=== PATIENT | male | born 1955 | race Caucasian/White ===

== ENCOUNTER → 2016-08-19 | Outpatient (CLI) | payer OTHER ==
[~2016-08-19] MED LIST: EFFSR75 PO; LEVO-18 PO; LVNIS150 SC; MOME200A INH; MULT-506 PO; ONDA8TAB6 PO; OXYC-106 PO; OXYC1TAB3 PO; WARF-237 PO; WARF2TAB PO; WARF5TAB90 PO; lovenox SC
--- NOTE | 2016-08-19 14:59 | DIAGNOSTIC IMAGING REPORT ---
ABDOMEN CT WITH IV AND ORAL CONTRAST CT DOSE: 585.26 mGy.cm HISTORY: Colon carcinoma 08/12/16 1049 CREAK 0.86 TECHNIQUE: Multiaxial CT images of the abdomen was performed following the use of intravenous and oral contrast. COMPARISON STUDY: 03/07/2016 FINDINGS: Lung bases remain generally clear. There is a 4 mm nodular density peripheral aspect right lung base slightly increased in prominence from the prior study. There are no new or interval nodular changes of the lung bases compared to the prior exam. The hepatic metastatic deposits are in general stable. There are no new interval or progressive lesions. There are findings of slight degree of proximal small bowel distention most likely secondary to a stable ventral hernia. No evidence for true incarceration is identified. There are several small retroperitoneal nodes unchanged in the prior exam. There does not appear to be evidence for new interval or progressive poli process. Spleen remains mildly prominent overall size. There is a small fixed hiatal hernia. IMPRESSION: 1. Slight increase in size of a nodular density right base laterally measuring 4 mm. 2. This study of the abdomen is otherwise unchanged from the prior study. 3. Ventral hernia, previously described, with this perhaps slightly larger as compared to the prior study with evidence for a mild degree of proximal small bowel distention. 4. Stable hepatic metastatic disease. 5. No evidence for progressive neoplastic change involving the abdomen Electronically signed by: Justus John M.D. 08/19/2016 2:58 PM Dictated Date/Time: 08/19/2016 2:46 PM
== END | disposition home or self-care (01) ==
LOC: C.CTS 13:35
PROVIDERS: ATTEND Internal Medicine Hematology & Oncology
DX: C18.2 Malignant neoplasm of ascending colon (principal); K43.9 Ventral hernia without obstruction or gangrene

== ENCOUNTER → 2016-09-24 | Outpatient (CLI) | payer OTHER ==
--- NOTE | 2016-09-24 11:47 | DIAGNOSTIC IMAGING REPORT ---
CHEST 2 VIEWS ROUTINE HISTORY: Cough. COMPARISON: Chest 03/28/2016. FINDINGS: The heart is normal size. Left subclavian Port-A-Cath terminates at the distal left brachiocephalic vein near the SVC junction. No focal lung consolidations to suggest pneumonia. No evidence for pulmonary edema. No pleural effusions. No pneumothorax. IMPRESSION: No acute process. Electronically signed by: Amado Garces M.D. 09/24/2016 11:46 AM Dictated Date/Time: 09/24/2016 11:44 AM
== END | disposition home or self-care (01) ==
LOC: C.RAD 11:26
PROVIDERS: ATTEND Internal Medicine Hematology & Oncology
DX: C18.2 Malignant neoplasm of ascending colon (principal); R05 Cough

== ENCOUNTER 2016-12-31 08:30 | Emergency (ER) | payer OTHER ==
[~2016-12-31] VITALS: Ht 180.3 cm; Wt 95.0 kg
[~2016-12-31 08:30] MED LIST changes: -EFFSR75 PO; -LEVO-18 PO; -LVNIS150 SC; -OXYC-106 PO; -WARF-237 PO; -WARF2TAB PO; -WARF5TAB90 PO; -lovenox SC
[2016-12-31 08:37] VITALS: TEMP 36.4; Ht 180.3 cm; Wt 95.0 kg
[2016-12-31] MEDS ORDERED: SODIUM CHLORIDE 0.9% 1000ML 1,000 ML IV STA ×2 (08:44→10:18)
[2016-12-31 08:45] VITALS: O2SAT 100
--- NOTE | 2016-12-31 09:03 | EMERGENCY ROOM VISIT NOTE ---
History Report prepared by Maulik: Lenard Garcia Under the Supervision of: Dr. Anton Carmichael D.O. First contact with patient: 08:43 Chief Complaint: SYNCOPE (NEAR SYNCOPE) Stated Complaint: BLACKED OUT History of Present Illness The patient is a 61 year old male who presents to the Emergency Room following a syncopal episode that occurred just prior to arrival. The patient states he first began to feel dizzy after he stood up and began to walk to the kitchen. He notes experiencing some vision irregularities before completely "blacking out." The patient describes that he fell straight forward, directly onto a hardwood floor. He is now complaining of pain in his jaw and bilateral chest. He also notes that he chipped multiple teeth. He is currently receiving chemotherapy treatments for colon cancer with metastasis to the liver and lung. He was first diagnosed with colon cancer on the 03 of October and had an emergency colon resection on the . Source of History: patient Onset: Just prior to arrival Position: other (Global) Quality: other (Syncopal episode) Associated Symptoms: + chest pain (From fall ) Note: Jaw/teeth pain. Review of Systems See HPI for pertinent positives & negatives. A total of 10 systems reviewed and were otherwise negative. Past Medical & Surgical Medical Problems: (1) Asthma (2) Diverticulitis (3) Metastatic adenocarcinoma Surgical Problems: (1) H/O knee surgery (2) History of tonsillectomy Family History Patient reports no known family medical history. Social History Smoking Status: Never Smoker Drug Use: none Marital Status: Occupation Status: employed Current/Historical Medications Scheduled Multivitamin (Multivitamin), 1 TAB PO QAM Venlafaxine Hcl (Effexor Extended Rel), 75 MG PO DAILY Scheduled PRN Mometasone Furoate-Formoterol (Dulera 200/5 Mcg), 1 AER INH for PRN Ondansetron Hcl (Zofran), 8 MG PO Q8 PRN for Nausea Oxycodone/Acetaminophen 10MG/325MG (Percocet 10MG/325MG), 1 TAB PO Q4H PRN for Pain Allergies Coded Allergies: Poison Marlene Extract/Poison Cavour Extra (Verified Allergy, Intermediate, Rash - poison marlene, 12/31/16) Physical Exam Vital Signs Date Time Temp Pulse Resp B/P (MAP) Pulse Ox O2 Delivery O2 Flow Rate FiO2 12/31/16 12:39 61 12/31/16 11:39 59 20 139/91 100 Room Air 12/31/16 10:30 63 18 125/83 100 Room Air 12/31/16 09:50 59 18 137/83 100 Room Air 12/31/16 08:49 76 12/31/16 08:45 69 18 123/87 100 Room Air 70 116/80 80 100/54 12/31/16 08:45 100 Room Air 12/31/16 08:37 36.4 76 20 112/75 100 Room Air Physical Exam CONSTITUTIONAL/VITAL SIGNS: Reviewed / noted above. GENERAL: Non-toxic in appearance. INTEGUMENTARY: Warm, dry, and [place]. HEAD: There is a small skin avulsion to the lower lip as well as a 2 cm chin laceration. There is bilateral jaw pain with ROM. There is dental pain present , no obvious dental avulsion or fracture. EYES: without scleral icterus or trauma. ENT/OROPHARYNX: clear and moist. LYMPHADENOPATHY/NECK: Is supple without lymphadenopathy or meningismus. RESPIRATORY: Lungs clear and equal. CARDIOVASCULAR: Regular rate and rhythm. GI/ABDOMEN: Soft and nontender. No organomegaly or pulsatile mass. No rebound or guarding. Normal bowel sounds. EXTREMITIES: Warm and well perfused. BACK: No CVA tenderness. NEUROLOGICAL: Intact without focal deficits. PSYCHIATRIC: normal affect. MUSCULOSKELETAL: Normally developed with good muscle tone. Medical Decision & Procedures ER Provider Diagnostic Interpretation: Radiology results as stated below per my review and radiologist interpretation: CHEST ONE VIEW PORTABLE CLINICAL HISTORY: EVALUATE ALTERED MENTAL STATUS/WEAKNESS COMPARISON STUDY: 09/24/2016 FINDINGS: The bones soft tissues and hemidiaphragms are normal. The cardiomediastinal silhouette is normal. The lungs are clear. The pulmonary vasculature is normal. IMPRESSION: Negative chest. Electronically signed by: Justus John M.D. 12/31/2016 9:13 AM Dictated Date/Time: 12/31/2016 9:[address] CT DOSE: 872.02 mGy.cm HISTORY: EVALUATE ALTERED MENTAL STATUS/WEAKNESS TECHNIQUE: Multiaxial CT images of the head were performed without the use of intravenous contrast. Comparison: None. Findings: The paranasal sinuses and mastoid air cells are clear. The calvarium and skull base are intact. The ventricles and sulci are within normal limits. There is no mass, hematoma, midline shift, or acute infarct. Impression: No acute intracranial abnormality. Electronically signed by: Justus John M.D. 12/31/2016 9:39 AM Dictated Date/Time: 12/31/2016 9:[address] DOSE: HISTORY: Facial injury. fall TECHNIQUE: Multiaxial CT images of the maxillofacial region were performed and reformatted in the coronal plane without the use of contrast. COMPARISON: None. FINDINGS: Evaluation the limited due to the metallic artifact from the dental hardware. The nasal bones, visualized cervical spine, skull base, pterygoid plates, zygomatic arches, and orbital floors are intact. Slightly angulated and comminuted fracture within the left mandibular condyle. There is also a comminuted and impacted fracture within the right mandibular condyle. This demonstrates anterior subluxation from the mandibular fossa. Postoperative changes within the left globe. IMPRESSION: Bilateral mandibular condyle fractures as described above Electronically signed by: Amado Garces M.D. 12/31/2016 9:47 AM Dictated Date/Time: 12/31/2016 9:41 AM. CHEST CTA for PULMONARY ARTERIES CT DOSE: 544.09 mGycm HISTORY: Chest pain dyspnea TECHNIQUE: Multiaxial CT images of the chest were performed following the intravenous administration of contrast to evaluate the pulmonary arteries. Maximal intensity projection images were also obtained. COMPARISON STUDY: None. FINDINGS: There is a normal caliber thoracic aorta with no evidence for dissection. There is no evidence for pulmonary embolus. No pleural effusions. No pneumothorax. The liver and spleen are unremarkable. No mediastinal or hilar lymphadenopathy. The central airways are patent. The lungs are clear. A millimeter nodular density peripheral aspect right lower lobe. 4 mm nodular density right upper lobe. 3 mm nodular density superior segment right lower lobe. IMPRESSION: 1. Study is negative for pulmonary embolus. 2. Lungs are clear with no focal infiltrate. 3. Several right hemithoracic nodular densities with close CT follow-up recommended per Fleischner criteria. Please refer to below summary of Fleischner criteria recommendations for follow-up of incidental CT nodules (Dina Escobedo, Guidelines for management of small pulmonary nodules detected on CT scans: A statement from the Fleischner Society, Radiology 237: [phone].) SOLID NODULES Solitary nodule size: <6 mm * low risk patients: no follow-up needed * high risk patients: optional CT at 12 months Solitary nodule size: 6-8 mm * low risk patients: follow-up at 6-12 months, then consider further follow-up at 18-24 months * high risk patients: initial follow-up CT at 6-12 months and then at 18-24 months if no change Solitary nodule size: >8 mm * either low or high risk patients - consider follow-up CT at 3 months, and/or CT-PET, and/or biopsy Multiple nodules size: <6 mm * low risk patients: no routine follow-up * high risk patients: optional CT at 12 months Multiple nodules size: 6-8 mm * low risk patients: follow-up at 3-6 months, then consider further follow-up at 18-24 months * high risk patients: follow-up at 3-6 months, then at 18-24 months if no change Multiple nodules size: >8 mm * low risk patients: follow-up at 3-6 months, then consider further follow-up at 18-24 months * high risk patients: follow-up at 3-6 months, then at 18-24 months if no change Note: newly detected indeterminate nodule in persons 35 years of age or older. * Low risk patients: minimal or absent history of smoking and/or other known risk factors * high risk patients: history of smoking or of other known risk factors (e.g. first degree relative with lung cancer, or exposure to asbestos, radon, uranium) * if a nodule up to 8 mm is partly solid or is ground glass further follow-up is required after 24 months to exclude possible slow growing adenocarcinoma (MILAD) SUBSOIL NODULES Solitary pure ground-glass nodule * nodule size <6 mm - no CT follow-up required * nodule size >=6 mm - follow-up CT at 6-12 months, then every 2 years until 5 years Solitary part-solid nodule * nodule size <6 mm - no CT follow-up required * nodule size >=6 mm - follow-up CT at 3-6 months. If unchanged, and solid component remains <6 mm, then annual follow-up for 5 years Multiple subsolid nodules * nodule size <6 mm - follow-up CT at 3-6 months, consider further follow-up at 2 and 4 years if stable * nodule size >=6 mm - follow-up CT at 3-6 months, subsequent management based on the most suspicious nodule(s) Electronically signed by: Justus John M.D. 12/31/2016 11:33 AM Dictated Date/Time: 12/31/2016 11:28 AM Laboratory Results 12/31/16 08:55 Red Blood Count 3.97, Mean Corpuscular Volume 97.0, Mean Corpuscular Hemoglobin 34.0, Mean Corpuscular Hemoglobin Concent 35.1, Mean Platelet Volume 9.8, Neutrophils (%) (Auto) 63.7, Lymphocytes (%) (Auto) 27.3, Monocytes (%) (Auto) 4.5, Eosinophils (%) (Auto) 3.6, Basophils (%) (Auto) 0.3, Neutrophils # (Auto) 2.15, Lymphocytes # (Auto) 0.92, Monocytes # (Auto) 0.15, Eosinophils # (Auto) 0.12, Basophils # (Auto) 0.01 12/31/16 08:55 Test 12/31/16 08:55 12/31/16 10:50 White Blood Count 3.37 K/uL (4.8-10.8) Red Blood Count 3.97 M/uL (4.7-6.1) Hemoglobin 13.5 g/dL (14.0-18.0) Hematocrit 38.5 % (42-52) Mean Corpuscular Volume 97.0 fL (80-100) Mean Corpuscular Hemoglobin 34.0 pg (25-34) Mean Corpuscular Hemoglobin Concent 35.1 g/dl (32-36) Platelet Count 163 K/uL (130-400) Mean Platelet Volume 9.8 fL (7.4-10.4) Neutrophils (%) (Auto) 63.7 % Lymphocytes (%) (Auto) 27.3 % Monocytes (%) (Auto) 4.5 % Eosinophils (%) (Auto) 3.6 % Basophils (%) (Auto) 0.3 % Neutrophils # (Auto) 2.15 K/uL (1.4-6.5) Lymphocytes # (Auto) 0.92 K/uL (1.2-3.4) Monocytes # (Auto) 0.15 K/uL (0.11-0.59) Eosinophils # (Auto) 0.12 K/uL (0-0.5) Basophils # (Auto) 0.01 K/uL (0-0.2) RDW Standard Deviation 51.3 fL (36.4-46.3) RDW Coefficient of Variation 14.6 % (11.5-14.5) Immature Granulocyte % (Auto) 0.6 % Immature Granulocyte # (Auto) 0.02 K/uL (0.00-0.02) Prothrombin Time 10.0 SECONDS (9.0-12.0) Prothromb Time International Ratio 0.9 (0.9-1.1) Activated Partial Thromboplast Time 24.4 SECONDS (21.0-31.0) Partial Thromboplastin Ratio 0.9 D-Dimer 47039 ug/L FEU (0-500) Anion Gap 10.0 mmol/L (3-11) Est Creatinine Clear Calc Drug Dose 85.0 ml/min Estimated GFR () 84.7 Estimated GFR (Non- 73.1 BUN/Creatinine Ratio 19.4 (10-20) Calcium Level 8.6 mg/dl (8.5-10.1) Magnesium Level 2.4 mg/dl (1.8-2.4) Total Bilirubin 1.0 mg/dl (0.2-1) Direct Bilirubin 0.4 mg/dl (0-0.2) Aspartate Amino Transf (AST/SGOT) 144 U/L (15-37) Alanine Aminotransferase (ALT/SGPT) 150 U/L (12-78) Alkaline Phosphatase 235 U/L (45-117) Total Creatine Kinase 64 U/L (39-308) Creatine Kinase MB 0.9 ng/ml (0.5-3.6) Creatine Kinase MB Ratio 1.4 (0-3.0) Troponin I < 0.015 ng/ml (0-0.045) Total Protein 7.2 gm/dl (6.4-8.2) Albumin 3.6 gm/dl (3.4-5.0) Lipase 237 U/L (73-393) Thyroid Stimulating Hormone (TSH) 1.210 uIu/ml (0.300-4.500) Chemistry Specimen Hemolysis Urine Color DK YELLOW Urine Appearance CLEAR (CLEAR) Urine pH 7.0 (4.5-7.5) Urine Specific [place] 1.011 (1.000-1.030) Urine Protein NEG (NEG) Urine Glucose (UA) NEG (NEG) Urine Ketones NEG (NEG) Urine Occult Blood NEG (NEG) Urine Nitrite NEG (NEG) Urine Bilirubin NEG (NEG) Urine Urobilinogen NEG (NEG) Urine Leukocyte Esterase NEG (NEG) Urine WBC (Auto) 1-5 /hpf (0-5) Urine RBC (Auto) 0-4 /hpf (0-4) Urine Hyaline Casts (Auto) 10-30 /lpf (0-5) Urine Epithelial Cells (Auto) 10-20 /lpf (0-5) Urine Bacteria (Auto) NEG (NEG) Laboratory results as stated above per my review. Medications Administered Medications (Trade) Dose Ordered Sig/Franky Route Start Time Stop Time Status Last Admin Dose Admin Sodium Chloride 1,000 ml @ 999 mls/hr Q1H1M STAT IV 12/31/16 08:44 12/31/16 09:44 DC 12/31/16 08:58 999 MLS/HR Morphine Sulfate (MoRPHine SULFATE INJ) 4 mg NOW STAT IV 12/31/16 09:44 12/31/16 09:45 DC 12/31/16 09:50 4 MG Sodium Chloride 1,000 ml @ 999 mls/hr Q1H1M STAT IV 12/31/16 10:18 12/31/16 11:18 DC 12/31/16 10:29 999 MLS/HR Morphine Sulfate (MoRPHine SULFATE INJ) 4 mg NOW STAT IV 12/31/16 10:21 12/31/16 10:22 DC 12/31/16 10:30 4 MG Procedure Location: chin Total length: 2 cm Complexity: simple Verbal consent was obtained after the risks and benefits were explained, including but not limited to bleeding, scarring, infection, pain, and bone/joint /nerve damage. At this time, the risks of the procedure are less than the risks of NOT performing the procedure. A time out was taken and the correct patient and site identified. The laceration was repaired using Dermabond. ECG Indication: syncope Rate (beats per minute): 74 Rhythm: normal sinus Findings: no ectopy, other (No acute injury) ED Course 0844: Ordered Sodium Chloride 1000 mL @ 999 mL/hr IV. 0850: Previous medical records were reviewed. The patient was evaluated in room B12B. A complete history and physical examination was performed. 0944: Ordered Morphine Sulfate 4 mg IV. 1018: Ordered Sodium Chloride 1000 mL @ 999 mL/hr IV. 1021: Ordered Morphine Sulfate 4 mg IV. 1215: I paged Dr. Su to discuss the case. He has not phoned back at this time. 1257: The patient states that he would like to go home and will no accept a stay in the hospital. The patient is in agreement with the treatment plan and will be discharged home. Medical Decision Differential diagnosis: Etiologies such as vasovagal event, infection, hypoglycemia, electrolyte abnormalities, cardiac sources, intracerebral event, toxicologic, neurologic, as well as others were entertained. This is a 61-year-old male who presents to the ED with a chief complaint of having a syncopal episode. The patient is currently undergoing treatment for colon cancer with metastases to his liver and lung. The patient states that he has been working outside a lot over these hot days. 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 He also had some diarrhea last night after taking some stool softeners. The patient states that he stood up in his kitchen and was feeling dizzy. He walked down the matos and passed out. He states that he was feeling like his vision was getting dark and he was feeling funny in the head prior to passing out. He woke up on the floor. The patient states that he face planted on the floor. He complains of jaw pain. He has a small laceration to his chin and an avulsion to his lower lip. The patient also complains of bilateral chest pain that is worse with inspiration. No abdominal tenderness. There is bilateral mandibular discomfort with palpation and with movement of the jaw. There is no obvious dental fractures although there might be a chronic dental fracture on the right upper premolar. There is no midline tenderness of the neck or back. Extremities are without obvious injury. Positive orthostatic vital signs. EKG shows a normal sinus rhythm at a rate of 74. Chest x-ray was negative for acute disease. A CT scan of the brain did not show any acute injury. CT scan of the face reveals bilateral mandibular condyle fractures. The CBC is unremarkable. Troponin is negative. AST and ALT are slightly elevated. CT scan of the chest did not show acute fracture, PE or other acute abnormality. The patient was told results the test. He was offered observation for pain management but decided to go home. He will be referred to [facility] oromaxillofacial surgery or Dr. Curtis (his son was seen by him prior ). He was told to drink for a straw and to avoid chewing. He was discharged on Percocet. He will return for any concerns or worsening. He was hydrated with 2 L normal saline IV. He was also provided by IV morphine for pain. The patient was offered observation but declined coming to the hospital. Impression Primary Impression: Mandibular fracture, closed Additional Impressions: Chin laceration Chest wall contusion Syncope due to orthostatic hypotension Dehydration Scribe Attestation The scribe's documentation has been prepared under my direction and personally reviewed by me in its entirety. I confirm that the note above accurately reflects all work, treatment, procedures, and medical decision making performed by me. Departure Information Dispostion Home / Self-Care Prescriptions Oxycodone/Acetaminophen 10MG/325MG (PERCOCET 10MG/325MG) Tab 1 TAB PO Q4H Y for Pain, #30 TAB Prov: Anton Carmichael D.O. 12/31/16 Referrals Trevor Lawler Jr,D.O. (PCP) Patient Instructions ED Fx Mandible, ED Hypotension Orthostatic, [facility] Additional Instructions Percocet as prescribed. No driving within 6 hours of use. Do not take additional Tylenol while taking Percocet. Follow-up with Dr. Su for your jaw fracture. Call today for an appointment. Avoid chewing or other activities that increase jaw discomfort. Increase fluids. Problem Qualifiers
[2016-12-31 09:05] LABS: BASO % 0.3 %; BASO ABS # 0.01 K/uL (0-0.2); COMPLETE YES; EOS % 3.6 %; HEMATOCRIT 38.5 % (42-52); IG% 0.6 %; LYMPH % 27.3 %; LYMPH ABS # 0.92 K/uL (1.2-3.4); MEAN CORPUSCULAR HGB CONC 35.1 g/dl (32-36); MEAN PLATELET VOLUME 9.8 fL (7.4-10.4); MONO % 4.5 %; NEUT % 63.7 %; PLATELET COUNT 163 K/uL (130-400); RED BLOOD COUNT 3.97 M/uL (4.7-6.1); WHITE BLOOD COUNT 3.37 K/uL (4.8-10.8)
--- NOTE | 2016-12-31 09:14 | DIAGNOSTIC IMAGING REPORT ---
CHEST ONE VIEW PORTABLE CLINICAL HISTORY: EVALUATE ALTERED MENTAL STATUS/WEAKNESS COMPARISON STUDY: 09/24/2016 FINDINGS: The bones soft tissues and hemidiaphragms are normal. The cardiomediastinal silhouette is normal. The lungs are clear. The pulmonary vasculature is normal. IMPRESSION: Negative chest. Electronically signed by: Justus John M.D. 12/31/2016 9:13 AM Dictated Date/Time: 12/31/2016 9:13 AM
[2016-12-31] MEDS ORDERED: EFFSR75 PO (09:18)
[2016-12-31 09:25] LABS: INR 0.9 (0.9-1.1); PARTIAL THROMBOPLASTIN RATIO 0.9
[2016-12-31 09:29] LABS: ALT/SGPT 150 U/L (12-78); BLOOD UREA NITROGEN 21 mg/dl (7-18); BUN/CREATININE RATIO 19.4 (10-20); CALCIUM 8.6 mg/dl (8.5-10.1); CARBON DIOXIDE 25 mmol/L (21-32); CHLORIDE 105 mmol/L (98-107); GLUCOSE 105 mg/dl (70-99); MAGNESIUM 2.4 mg/dl (1.8-2.4); SODIUM 140 mmol/L (136-145)
[2016-12-31 09:41] LABS: ALKALINE PHOSPHATASE 235 U/L (45-117); AST/SGOT 144 U/L (15-37); CKMB/CK RATIO 1.4 (0-3.0)
--- NOTE | 2016-12-31 09:41 | DIAGNOSTIC IMAGING REPORT ---
HEAD CT NONCONTRAST CT DOSE: 872.02 mGy.cm HISTORY: EVALUATE ALTERED MENTAL STATUS/WEAKNESS TECHNIQUE: Multiaxial CT images of the head were performed without the use of intravenous contrast. Comparison: None. Findings: The paranasal sinuses and mastoid air cells are clear. The calvarium and skull base are intact. The ventricles and sulci are within normal limits. There is no mass, hematoma, midline shift, or acute infarct. Impression: No acute intracranial abnormality. Electronically signed by: Justus John M.D. 12/31/2016 9:39 AM Dictated Date/Time: 12/31/2016 9:37 AM
[2016-12-31] MEDS ORDERED: MoRPHine SULFATE 4 MG/ML 1 ML CARP\\VIAL IV STA ×2 (09:44→10:21)
--- NOTE | 2016-12-31 09:48 | DIAGNOSTIC IMAGING REPORT ---
MAXILLOFACIAL CT CT DOSE: HISTORY: Facial injury. fall TECHNIQUE: Multiaxial CT images of the maxillofacial region were performed and reformatted in the coronal plane without the use of contrast. COMPARISON: None. FINDINGS: Evaluation the limited due to the metallic artifact from the dental hardware. The nasal bones, visualized cervical spine, skull base, pterygoid plates, zygomatic arches, and orbital floors are intact. Slightly angulated and comminuted fracture within the left mandibular condyle. There is also a comminuted and impacted fracture within the right mandibular condyle. This demonstrates anterior subluxation from the mandibular fossa. Postoperative changes within the left globe. IMPRESSION: Bilateral mandibular condyle fractures as described above Electronically signed by: Amado Garces M.D. 12/31/2016 9:47 AM Dictated Date/Time: 12/31/2016 9:41 AM
[2016-12-31] MEDS ORDERED: OPTIRAY 320 IV PRN (11:00)
[2016-12-31 11:10] LABS: URINE APPEARANCE CLEAR (CLEAR); URINE BILIRUBIN NEG (NEG); URINE COLOR DK YELLOW; URINE NITRITE NEG (NEG); URINE SPECIFIC GRAVITY 1.011 (1.000-1.030); UROBILINOGEN NEG (NEG); ZZUR CULT IF INDIC CLEAN CATCH NO
[2016-12-31 11:18] LABS: MANUAL MICROSCOPIC REQUIRED? NO; REVIEW REQ? NO
--- NOTE | 2016-12-31 11:34 | DIAGNOSTIC IMAGING REPORT ---
CHEST CTA for PULMONARY ARTERIES CT DOSE: 544.09 mGycm HISTORY: Chest pain dyspnea TECHNIQUE: Multiaxial CT images of the chest were performed following the intravenous administration of contrast to evaluate the pulmonary arteries. Maximal intensity projection images were also obtained. COMPARISON STUDY: None. FINDINGS: There is a normal caliber thoracic aorta with no evidence for dissection. There is no evidence for pulmonary embolus. No pleural effusions. No pneumothorax. The liver and spleen are unremarkable. No mediastinal or hilar lymphadenopathy. The central airways are patent. The lungs are clear. A millimeter nodular density peripheral aspect right lower lobe. 4 mm nodular density right upper lobe. 3 mm nodular density superior segment right lower lobe. IMPRESSION: 1. Study is negative for pulmonary embolus. 2. Lungs are clear with no focal infiltrate. 3. Several right hemithoracic nodular densities with close CT follow-up recommended per Fleischner criteria. Please refer to below summary of Fleischner criteria recommendations for follow-up of incidental CT nodules (Dina Escobedo, Guidelines for management of small pulmonary nodules detected on CT scans: A statement from the Fleischner Society, Radiology 237: [phone].) SOLID NODULES Solitary nodule size: <6 mm * low risk patients: no follow-up needed * high risk patients: optional CT at 12 months Solitary nodule size: 6-8 mm * low risk patients: follow-up at 6-12 months, then consider further follow-up at 18-24 months * high risk patients: initial follow-up CT at 6-12 months and then at 18-24 months if no change Solitary nodule size: >8 mm * either low or high risk patients - consider follow-up CT at 3 months, and/or CT-PET, and/or biopsy Multiple nodules size: <6 mm * low risk patients: no routine follow-up * high risk patients: optional CT at 12 months Multiple nodules size: 6-8 mm * low risk patients: follow-up at 3-6 months, then consider further follow-up at 18-24 months * high risk patients: follow-up at 3-6 months, then at 18-24 months if no change Multiple nodules size: >8 mm * low risk patients: follow-up at 3-6 months, then consider further follow-up at 18-24 months * high risk patients: follow-up at 3-6 months, then at 18-24 months if no change Note: newly detected indeterminate nodule in persons 35 years of age or older. * Low risk patients: minimal or absent history of smoking and/or other known risk factors * high risk patients: history of smoking or of other known risk factors (e.g. first degree relative with lung cancer, or exposure to asbestos, radon, uranium) * if a nodule up to 8 mm is partly solid or is ground glass further follow-up is required after 24 months to exclude possible slow growing adenocarcinoma (MILAD) SUBSOIL NODULES Solitary pure ground-glass nodule * nodule size <6 mm - no CT follow-up required * nodule size >=6 mm - follow-up CT at 6-12 months, then every 2 years until 5 years Solitary part-solid nodule * nodule size <6 mm - no CT follow-up required * nodule size >=6 mm - follow-up CT at 3-6 months. If unchanged, and solid component remains <6 mm, then annual follow-up for 5 years Multiple subsolid nodules * nodule size <6 mm - follow-up CT at 3-6 months, consider further follow-up at 2 and 4 years if stable * nodule size >=6 mm - follow-up CT at 3-6 months, subsequent management based on the most suspicious nodule(s) Electronically signed by: Justus John M.D. 12/31/2016 11:33 AM Dictated Date/Time: 12/31/2016 11:28 AM
[2016-12-31] MEDS ORDERED: OXYC-106 PO (12:53)
[2016-12-31 13:24] VITALS: BP 154/87; PULSE 64; O2SAT 99
[2017-04-01] MEDS ORDERED: WARF-237 PO (16:13)
[2017-04-01] MEDS ORDERED: WARF5TAB90 PO (16:13)
[2017-04-08] MEDS ORDERED: LVNIS150 SC (15:50)
== END 2016-12-31 13:25 | disposition home or self-care (01) ==
LOC: C.EDB 08:31
DX: I95.1 Orthostatic hypotension (principal); S02.611A Fracture of condylar process of right mandible, initial encounter for closed fracture; S02.612A Fracture of condylar process of left mandible, initial encounter for closed fracture; S20.219A Contusion of unspecified front wall of thorax, initial encounter; S01.81XA Laceration without foreign body of other part of head, initial encounter; W19.XXXA Unspecified fall, initial encounter; R55 Syncope and collapse; E86.0 Dehydration; C80.1 Malignant (primary) neoplasm, unspecified; C78.7 Secondary malignant neoplasm of liver and intrahepatic bile duct; K57.92 Diverticulitis of intestine, part unspecified, without perforation or abscess without bleeding; J45.909 Unspecified asthma, uncomplicated; Z92.21 Personal history of antineoplastic chemotherapy; Z79.899 Other long term (current) drug therapy; Z98.890 Other specified postprocedural states; Z91.09 Other allergy status, other than to drugs and biological substances

== ENCOUNTER 2017-02-23 08:20 | Inpatient (IN) | payer OTHER ==
[~2017-02-23] VITALS: Ht 180.3 cm; Wt 89.9 kg
[~2017-02-23 08:20] MED LIST changes: +EFFSR75 PO; +OXYC-106 PO; -OXYC1TAB3 PO
[2017-02-23] MEDS ORDERED: LIDOCAINE/EPINEPH/TETRACAINE 1 EA SYR EXT STA (08:39)
[2017-02-23] MEDS ORDERED: SODIUM CHLORIDE 0.9% 1000ML 1,000 ML IV STA (08:39)
[2017-02-23] MEDS ORDERED: SODIUM CHLORIDE 0.9% 1000ML 1,000 ML IV ONE (08:39)
[2017-02-23] MEDS ORDERED: XYLOCAINE 1%/SOD BICARB 20 ML VIAL INFIL ONE (08:45)
--- NOTE | 2017-02-23 08:47 | EMERGENCY ROOM VISIT NOTE ---
History Report prepared by Maulik: Matilda Og Under the Supervision of: Dr. Michael Maloney M.D. First contact with patient: 08:29 Chief Complaint: SYNCOPE Stated Complaint: BLACKED OUT THIS AM, HIT EYE AND LT ELBOW Nursing Triage Summary: pt reports sncopal episode this AM , states " I felt it coming on but could not make it to my chair " lac above L eye pain in L elbow and shoulder chemo tx from last week ended 1 day ago History of Present Illness The patient is a 61 year old male who presents to the Emergency Room with complaints of an episode of syncope occurring [employer]PER[employer]. 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 He receives treatment via a pump into his liver and a port. He just finished his 4th chemo treatment of the week yesterday. After the treatment he felt weak and rundown, which he states it pretty typical of how he feels after completing his chemotherapy. This morning he was feeling tired. He was standing in the kitchen cutting food when he developed tunnel vision and felt like he was going to pass out. The patient states that he tried to start walking toward his chair to sit down, but fpc there he passed. He landed on his left side on the hardwood floor. He has a laceration above his left eye with some pain. He is also complaining of left wrist, elbow, and shoulder pain. The patient rates his pain as a 6/10 in severity. The patient denies fevers, headache, neck pain, chest pain, shortness of breath, abdominal pain. His tetanus is up to date. He does not take any blood thinners. 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 Review of Systems See HPI for pertinent positives & negatives. A total of 10 systems reviewed and were otherwise negative. Past Medical & Surgical Medical Problems: (1) Asthma (2) Diverticulitis (3) Metastatic adenocarcinoma Surgical Problems: (1) H/O knee surgery (2) History of tonsillectomy Old medical records were reviewed. Nurse's notes were reviewed and I agree with. Family History Patient reports no known family medical history. Social History Smoking Status: Never Smoker Drug Use: none Marital Status: Housing Status: lives with family Occupation Status: employed Current/Historical Medications Scheduled Multivitamin (Multivitamin), 1 TAB PO QAM Venlafaxine Hcl (Effexor Extended Rel), 75 MG PO DAILY Scheduled PRN Mometasone Furoate-Formoterol (Dulera 200/5 Mcg), 1 AER INH for PRN Ondansetron Hcl (Zofran), 8 MG PO Q8 PRN for Nausea Oxycodone/Acetaminophen 10MG/325MG (Percocet 10MG/325MG), 1 TAB PO Q4H PRN for Pain Allergies Coded Allergies: Poison Marlene Extract/Poison [place] Extra (Verified Allergy, Intermediate, Rash - poison marlene, 02/23/17) Physical Exam Vital Signs Date Time Temp Pulse Resp B/P (MAP) Pulse Ox O2 Delivery O2 Flow Rate FiO2 02/23/17 13:38 61 18 118/78 100 02/23/17 12:40 100 Room Air 02/23/17 11:12 64 16 123/80 97 Room Air 02/23/17 09:32 71 20 130/72 97 Room Air 02/23/17 08:23 36.7 89 20 99/67 100 Room Air Physical Exam General: Well developed well nourished non-ill appearing older male in no acute distress, breathing comfortably on room air. Normal speech HEENT: Normal cephalic, 2 cm laceration in the left eyebrow. Pupils are equal round and reactive to light. Extraocular movements are intact. Oropharynx is pink with moist mucous membranes. No swelling of the mouth lips or tongue. Neck: Supple with a midline trachea. No meningeal signs or stiffness, no JVD or bruits. No Stridor. Chest: Clear to auscultation bilaterally. No wheezes or rhonchi. No increased work of breathing. Heart: regular rate and rhythm. Abdomen: Soft nontender without rebound guarding or rigidity. There is an implantable chemo device in his left abdomen. Extremities: Minimal tenderness of the left wrist, elbow, and shoulder. No cyanosis clubbing or edema. No calf tenderness or assymetry Spine/Back. Non tender to palpation. No CVA tenderness Skin: Good turgor without rashes. Neurologic exam: Cranial nerves two through 12 are intact. Motor and sensation are intact and symmetrical throughout. Medical Decision & Procedures ER Provider Diagnostic Interpretation: Radiology results as stated below per my review and radiologist interpretation: LEFT WRIST 4 VIEWS HISTORY: eval for trauma COMPARISON: None. FINDINGS: There is no fracture or dislocation. Soft tissues are unremarkable. No radiopaque foreign bodies. Severe osteoarthritis at the first carpometacarpal joint and moderate osteoarthritis at the STT joint. IMPRESSION: No fractures. Electronically signed by: Amado Garces M.D. 02/23/2017 9:57 AM Dictated Date/Time: 02/23/2017 9:56 AM LEFT SHOULDER 3 VIEWS HISTORY: eval for trauma COMPARISON: None. FINDINGS: There is no fracture or dislocation. Soft tissues are unremarkable. The left clavicle is intact. Left subclavian Port-A-Cath. Moderate degenerative changes within the left shoulder. IMPRESSION: No fractures. Electronically signed by: Amado Garces M.D. 02/23/2017 9:54 AM Dictated Date/Time: 02/23/2017 9:[address]AST CT DOSE: 614.27 mGy.cm HISTORY: Syncope. Head injury. eval for trauma TECHNIQUE: Multiaxial CT images of the head were performed without the use of intravenous contrast. Automated exposure control was utilized for this study. A dose lowering technique was utilized adhering to the principles of ALARA. Comparison: Head CT 12/31/2016. Findings: The paranasal sinuses and mastoid air cells are clear. The calvarium and skull base are intact. There is no mass, hematoma, midline shift, acute infarct. The ventricles and sulci demonstrate mild age-related involutional changes. This remains unchanged. Healed left mandibular condyle fracture. No significant healing within the old right mandibular condyle fracture. Left supraorbital soft tissue laceration. Impression: No acute intracranial abnormality. Left supraorbital soft tissue laceration. Healed left mandibular condyle fracture. No significant healing within the old right mandibular condyle fracture. Electronically signed by: Amado Garces M.D. 02/23/2017 9:18 AM Dictated Date/Time: 02/23/2017 9:12 AM LEFT ELBOW 3 VIEWS HISTORY: Left elbow pain. eval for trauma COMPARISON: None. FINDINGS: There is no fracture or dislocation. Soft tissues are unremarkable. No definite elbow effusion. IMPRESSION: No fractures or dislocation within the left elbow. Electronically signed by: Amado Garces M.D. 02/23/2017 9:56 AM Dictated Date/Time: 02/23/2017 9:54 AM CHEST 2 VIEWS ROUTINE HISTORY: Syncope. COMPARISON: Outside hospital chest CT 01/24/2017. FINDINGS: No pleural effusions. No pneumothorax. The heart is normal in size. Left subclavian Port-A-Cath terminates at the proximal SVC. The left lung is clear. There is a new wedge-shaped opacity within the anterior aspect of the right middle lobe. IMPRESSION: A new wedge-shaped opacity within the anterior right middle lobe. This is nonspecific but could represent a pulmonary infarct given the evidence of pulmonary emboli on the 01/24/[address] Atelectasis or pneumonia could also have a similar appearance. Electronically signed by: Amado Garces M.D. 02/23/2017 10:04 AM Dictated Date/Time: 02/23/2017 9:57 AM CHEST CTA for PULMONARY ARTERIES CT DOSE: 327.30 mGy.cm HISTORY: Syncope. Lung cancer. TECHNIQUE: Multiaxial CT images of the chest were performed following the intravenous administration of contrast to evaluate the pulmonary arteries. Maximal intensity projection images were also obtained. A dose lowering technique was utilized adhering to the principles of ALARA. COMPARISON STUDY: Outside hospital chest CT 01/24/2017. CT 12/31/2016. FINDINGS: No evidence for an aortic dissection. No pleural or pericardial effusions. No change in the filling defects seen within the proximal segmental branches of the right lower lobe pulmonary arteries. This is consistent with subacute to chronic pulmonary. No new pulmonary emboli identified. Multiple hepatic masses are again noted and not significantly changed. The spleen is enlarged. This is also similar in size. Visualized adrenal glands are unremarkable. Cholecystectomy. Left subclavian Port-A-Cath. Mild right hilar lymphadenopathy with the largest lymph node measuring 12 mm. This previous measured 1 cm. Healing right anterior rib fractures. No suspicious lytic or blastic osseous lesions. The Port-A-Cath terminates in the proximal SVC. No pneumothorax. The left lung is essentially clear. Stable 8 mm nodule within the base of the right lower lobe. Dense consolidation within the anterior segment of the right upper lobe with scattered surrounding tree-in-bud nodular opacities. Stable 4 mm nodule seen within the superior segment of the right lower lobe on image 186 within the right upper lobe posteriorly on image 167. Narrowing versus partial opacification within the proximal anterior segmental bronchi of the right upper lobe. IMPRESSION: 1. No change in the subacute to chronic pulmonary emboli seen within the segmental branches of the right lower lobe. No new abnormal identified. 2. Interval development of dense consolidation within the anterior segment of the right upper lobe with surrounding tree-in-bud nodular airspace opacities. This favors a pneumonia. Pulmonary infarct is considered less likely given the patent pulmonary arteries at this location. Underlying malignancy/metastatic disease cannot be excluded. One month chest CT follow up is recommended to ensure resolution following a course of antibiotic therapy. 3. Mildly enlarged right hilar lymph nodes which have progressed. This may be reactive or due to metastatic disease. 4. Stable subcentimeter pulmonary nodules within the right lung. 5. Hepatic masses are not significant changed. Electronically signed by: Amado Garces M.D. 02/23/2017 11:26 AM Dictated Date/Time: 02/23/2017 11:13 AM Laboratory Results 02/23/17 08:50 Red Blood Count 3.63, Mean Corpuscular Volume 98.9, Mean Corpuscular Hemoglobin 33.9, Mean Corpuscular Hemoglobin Concent 34.3, Mean Platelet Volume 10.1, Neutrophils (%) (Auto) 77.5, Lymphocytes (%) (Auto) 15.5, Monocytes (%) (Auto) 3.2, Eosinophils (%) (Auto) 3.5, Basophils (%) (Auto) 0.3, Neutrophils # (Auto) 2.64, Lymphocytes # (Auto) 0.53, Monocytes # (Auto) 0.11, Eosinophils # (Auto) 0.12, Basophils # (Auto) 0.01 02/23/17 08:50 Test 02/23/17 08:50 02/23/17 08:53 White Blood Count 3.41 K/uL (4.8-10.8) Red Blood Count 3.63 M/uL (4.7-6.1) Hemoglobin 12.3 g/dL (14.0-18.0) Hematocrit 35.9 % (42-52) Mean Corpuscular Volume 98.9 fL (80-100) Mean Corpuscular Hemoglobin 33.9 pg (25-34) Mean Corpuscular Hemoglobin Concent 34.3 g/dl (32-36) Platelet Count 151 K/uL (130-400) Mean Platelet Volume 10.1 fL (7.4-10.4) Neutrophils (%) (Auto) 77.5 % Lymphocytes (%) (Auto) 15.5 % Monocytes (%) (Auto) 3.2 % Eosinophils (%) (Auto) 3.5 % Basophils (%) (Auto) 0.3 % Neutrophils # (Auto) 2.64 K/uL (1.4-6.5) Lymphocytes # (Auto) 0.53 K/uL (1.2-3.4) Monocytes # (Auto) 0.11 K/uL (0.11-0.59) Eosinophils # (Auto) 0.12 K/uL (0-0.5) Basophils # (Auto) 0.01 K/uL (0-0.2) RDW Standard Deviation 65.7 fL (36.4-46.3) RDW Coefficient of Variation 18.0 % (11.5-14.5) Immature Granulocyte % (Auto) 0.0 % Immature Granulocyte # (Auto) 0.00 K/uL (0.00-0.02) Anion Gap 6.0 mmol/L (3-11) Est Creatinine Clear Calc Drug Dose 95.6 ml/min Estimated GFR () 99.9 Estimated GFR (Non- 86.2 BUN/Creatinine Ratio 18.5 (10-20) Calcium Level 8.8 mg/dl (8.5-10.1) Total Bilirubin 2.3 mg/dl (0.2-1) Direct Bilirubin mg/dl (0-0.2) Aspartate Amino Transf (AST/SGOT) 103 U/L (15-37) Alanine Aminotransferase (ALT/SGPT) 104 U/L (12-78) Alkaline Phosphatase 249 U/L (45-117) Total Creatine Kinase 80 U/L (39-308) Creatine Kinase MB 0.7 ng/ml (0.5-3.6) Creatine Kinase MB Ratio 0.9 (0-3.0) Total Protein 7.5 gm/dl (6.4-8.2) Albumin 3.3 gm/dl (3.4-5.0) Lipase 176 U/L (73-393) Chemistry Specimen Hemolysis Bedside Troponin I < 0.030 ng/ml (0-0.045) Laboratory studies as stated above per my review. Medications Administered Medications (Trade) Dose Ordered Sig/Franky Route Start Time Stop Time Status Last Admin Dose Admin Sodium Chloride 1,000 ml @ 999 mls/hr Q1H1M STAT IV 02/23/17 08:39 02/23/17 09:39 DC 02/23/17 08:39 999 MLS/HR Tetracaine/ Epinephrine/ Lidocaine (L.e.t. Gel 4%/ 1:100/0.5%) 1 ea NOW STAT EXT 02/23/17 08:39 02/23/17 08:42 DC 02/23/17 08:39 1 EA Ondansetron HCl (Zofran Inj) 4 mg NOW STAT IV 02/23/17 10:43 02/23/17 10:44 DC 02/23/17 10:43 4 MG Vancomycin HCl 2300 mg/Sodium Chloride 546 ml @ 200 mls/hr TODAY@1330 ONCE IV 02/23/17 13:30 02/23/17 16:13 02/23/17 14:27 200 MLS/HR Piperacillin Sod/ Tazobactam Sod (Zosyn Iv) 4.5 gm ONE ONCE IV 02/23/17 13:15 02/23/17 13:16 DC 02/23/17 13:37 4.5 GM Heparin Sodium/ Dextrose (Heparin 25,000 Unit/500ml D5W) 25,000 unit STK-MED ONCE .ROUTE 02/23/17 13:25 02/23/17 13:26 DC 02/23/17 13:29 25,000 UNIT Heparin Sodium (Porcine) (Heparin Sq 5000 Unit/0.5ml) 5,000 unit STK-MED ONCE .ROUTE 02/23/17 13:25 02/23/17 13:26 DC 02/23/17 13:29 4,000 UNIT Procedure Location: Face Total length: 2 cm Complexity: simple Verbal consent was obtained after the risks and benefits were explained, including but not limited to bleeding, scarring, infection, pain, and bone/joint /nerve damage. At this time, the risks of the procedure are less than the risks of NOT performing the procedure. A time out was taken and the correct patient and site identified. The skin was prepped with betadine. The target area was anesthetized with L.e.t. gel. Copious irrigation was performed using NSS. The skin was re-prepped with betadine and a sterile field set. The wound was explored for foreign bodies and none found. Examination revealed no injury to deep structures such as tendons, bone, or significant blood vessels. Debridement was not performed. The wound edges were approximated using 6, 6-0 simple interrupted nylon sutures. Hemostasis and excellent approximation was achieved. Antibacterial ointment and a sterile dressing applied. Detailed wound care instructions and signs and symptoms of infection reviewed with the patient. No complications and the patient tolerated the procedure well. ECG Indication: syncope Rate (beats per minute): 66 Rhythm: normal sinus Findings: no acute ischemic change, no ectopy, other (LVH) Comparison ECG Date: no prior available ED Course 0832: Past medical records reviewed. The patient was evaluated in room B6, and a complete history and physical examination were performed. 0839: L.e.t Gel 4% EXT, NSS 1000 ml @ 200 mls/hr IV, NSS 1000 ml @ 999 mls/hr IV 0953: At this time I performed a laceration repair. Please see the procedure note for further details. 1004: Dr. Garces of radiology paged at this time. He was reviewing the patient's radiology results. The patient has a new opacity in the right middle lobe. Dr. Garces compared it to a CT done in [place] on January 24. There was a PE on CT, but the patient states that he was not informed or treated for it. 1037: I spoke with Dr. Nam, the patient's oncologist. We discussed the patient' s case and he requested a CT. 1039: I discussed the risks and benefits associated with CT scan with the patient. He is in agreement with the treatment plan. 1043: Zofran 4 mg IV 1120: I updated the patient. He tolerated the CT scan well. 1223: I reassessed the patient at this time. He is feeling better and resting comfortably. I discussed the results and treatment plan with the patient. I answered all pertaining questions that he had. He expressed understanding and verbalized agreement. 1231: I spoke with Dr. Manjarrez. We discussed the patients case. The patient will be evaluated by the [facility] for further management. Medical Decision Differential diagnoses includes syncope, arrhythmia, dehydration, trauma, electrolyte or metabolic abnormality, laceration. This patient comes in after having a syncopal episode he is on chemotherapy and he had prodromal symptoms. I think most likely this was related to hydration orthostasis. No chest pain or shortness of breath. He did hit his head as well his left wrist elbow and shoulder. His tetanus booster is up-to-date. He has a normal neurologic exam. He denies any abdominal or chest or back trauma. he looks well on exam. IV access established hydrated normal saline EKG was obtained as well as a CAT scan of his head and x-rays were obtained. Multiple blood testing was obtained. Let gel was applied and the laceration was repaired. CAT scan of his head was unremarkable. His blood work is unremarkable. He is nothing to suggest acute cardiac event or arrhythmia his x- rays do not show any definite fractures. The radiologist did call and tell me that there is a wedge shaped area in the left lung field that is new. The radiologist has reviewed a CAT scan performed on January 24 at an outside hospital which showed a PE. The patient says that he is not on any anticoagulation and did not know about this. I did talk to Dr. Campuzano, his oncologist, who recommended that we repeat the CAT scan today and if the patient has a PE, he should be admitted for further treatment and evaluation anticoagulation. The diagnosis was confirmed and he may also have a pneumonia. I do think he needs to be admitted for anticoagulation and further treatment and evaluation given his multiple comorbidities. I have consulted avery [place] the patient in the ER. Medication Reconcilliation Current Medication List: was personally reviewed by me Blood Pressure Screening Patient's blood pressure: Normal blood pressure Consults Time Called: 1004 Consulting Physician: Dr. Garces Returned Call: [phone] Dr. Garces of radiology paged at this time. He was reviewing the patient's radiology results. The patient has a new opacity in the right middle lobe. Dr. Garces compared it to a CT done in [place] on January 24. There was a PE on CT, but the patient states that he was not informed or treated for it. Additional Consults: Time Called: 1031 Consulted Physician: Dr. Nam Returned Call: [phone] Additional Comments: I spoke with Dr. Nam, the patient's oncologist. We discussed the patient's case and he requested a CT. Time Called: 1227 Consulted Physician: Dr. Manjarrez Returned Call: [phone] Additional Comments: I spoke with Dr. Manjarrez. We discussed the patients case. The patient will be evaluated by the [facility] for further management. Impression Primary Impression: Pulmonary emboli Additional Impressions: Syncope Metastatic cancer to liver Scribe Attestation The scribe's documentation has been prepared under my direction and personally reviewed by me in its entirety. I confirm that the note above accurately reflects all work, treatment, procedures, and medical decision making performed by me. Departure Information Dispostion Being Evaluated By Hospitalist Referrals Trevor Lawler Jr,D.O. (PCP) Patient Instructions My [facility] Problem Qualifiers Primary Impression: Pulmonary emboli Additional Impressions: Syncope Syncope type: unspecified Qualified Codes: R55 - Syncope and collapse
[2017-02-23 09:05] LABS: BASO % 0.3 %; BASO ABS # 0.01 K/uL (0-0.2); COMPLETE YES; EOS % 3.5 %; HEMATOCRIT 35.9 % (42-52); LYMPH % 15.5 %; LYMPH ABS # 0.53 K/uL (1.2-3.4); MEAN CELL VOLUME 98.9 fL (80-100); MEAN CORPUSCULAR HEMOGLOBIN 33.9 pg (25-34); MEAN CORPUSCULAR HGB CONC 34.3 g/dl (32-36); MEAN PLATELET VOLUME 10.1 fL (7.4-10.4); MONO % 3.2 %; NEUT % 77.5 %; PLATELET COUNT 151 K/uL (130-400); RED BLOOD COUNT 3.63 M/uL (4.7-6.1); WHITE BLOOD COUNT 3.41 K/uL (4.8-10.8)
--- NOTE | 2017-02-23 09:19 | DIAGNOSTIC IMAGING REPORT ---
HEAD CT NONCONTRAST CT DOSE: 614.27 mGy.cm HISTORY: Syncope. Head injury. eval for trauma TECHNIQUE: Multiaxial CT images of the head were performed without the use of intravenous contrast. Automated exposure control was utilized for this study. A dose lowering technique was utilized adhering to the principles of ALARA. Comparison: Head CT 12/31/2016. Findings: The paranasal sinuses and mastoid air cells are clear. The calvarium and skull base are intact. There is no mass, hematoma, midline shift, acute infarct. The ventricles and sulci demonstrate mild age-related involutional changes. This remains unchanged. Healed left mandibular condyle fracture. No significant healing within the old right mandibular condyle fracture. Left supraorbital soft tissue laceration. Impression: No acute intracranial abnormality. Left supraorbital soft tissue laceration. Healed left mandibular condyle fracture. No significant healing within the old right mandibular condyle fracture. Electronically signed by: Amado Garces M.D. 02/23/2017 9:18 AM Dictated Date/Time: 02/23/2017 9:12 AM
[2017-02-23 09:20] LABS: ALT/SGPT 104 U/L (12-78); BLOOD UREA NITROGEN 18 mg/dl (7-18); BUN/CREATININE RATIO 18.5 (10-20); CALCIUM 8.8 mg/dl (8.5-10.1); CARBON DIOXIDE 28 mmol/L (21-32); CHLORIDE 101 mmol/L (98-107); CREATININE 0.96 mg/dl (0.60-1.40); GLUCOSE 82 mg/dl (70-99); POTASSIUM 3.9 mmol/L (3.5-5.1); SODIUM 135 mmol/L (136-145)
[2017-02-23 09:21] LABS: ALKALINE PHOSPHATASE 249 U/L (45-117); AST/SGOT 103 U/L (15-37); CKMB/CK RATIO 0.9 (0-3.0)
--- NOTE | 2017-02-23 09:55 | DIAGNOSTIC IMAGING REPORT ---
LEFT SHOULDER 3 VIEWS HISTORY: eval for trauma COMPARISON: None. FINDINGS: There is no fracture or dislocation. Soft tissues are unremarkable. The left clavicle is intact. Left subclavian Port-A-Cath. Moderate degenerative changes within the left shoulder. IMPRESSION: No fractures. Electronically signed by: Amado Garces M.D. 02/23/2017 9:54 AM Dictated Date/Time: 02/23/2017 9:53 AM
--- NOTE | 2017-02-23 09:57 | DIAGNOSTIC IMAGING REPORT ---
LEFT ELBOW 3 VIEWS HISTORY: Left elbow pain. eval for trauma COMPARISON: None. FINDINGS: There is no fracture or dislocation. Soft tissues are unremarkable. No definite elbow effusion. IMPRESSION: No fractures or dislocation within the left elbow. Electronically signed by: Amado Garces M.D. 02/23/2017 9:56 AM Dictated Date/Time: 02/23/2017 9:54 AM
--- NOTE | 2017-02-23 09:58 | DIAGNOSTIC IMAGING REPORT ---
LEFT WRIST 4 VIEWS HISTORY: eval for trauma COMPARISON: None. FINDINGS: There is no fracture or dislocation. Soft tissues are unremarkable. No radiopaque foreign bodies. Severe osteoarthritis at the first carpometacarpal joint and moderate osteoarthritis at the STT joint. IMPRESSION: No fractures. Electronically signed by: Amado Garces M.D. 02/23/2017 9:57 AM Dictated Date/Time: 02/23/2017 9:56 AM
--- NOTE | 2017-02-23 10:05 | DIAGNOSTIC IMAGING REPORT ---
CHEST 2 VIEWS ROUTINE HISTORY: Syncope. COMPARISON: Outside hospital chest CT 01/24/2017. FINDINGS: No pleural effusions. No pneumothorax. The heart is normal in size. Left subclavian Port-A-Cath terminates at the proximal SVC. The left lung is clear. There is a new wedge-shaped opacity within the anterior aspect of the right middle lobe. IMPRESSION: A new wedge-shaped opacity within the anterior right middle lobe. This is nonspecific but could represent a pulmonary infarct given the evidence of pulmonary emboli on the 01/24/[address] Atelectasis or pneumonia could also have a similar appearance. Electronically signed by: Amado Garces M.D. 02/23/2017 10:04 AM Dictated Date/Time: 02/23/2017 9:57 AM
[2017-02-23] MEDS ORDERED: ONDANSETRON INJ 2 MG/ML 2 ML VIAL IV STA (10:43)
[2017-02-23] MEDS ORDERED: OPTIRAY 320 IV PRN (10:45)
--- NOTE | 2017-02-23 11:27 | DIAGNOSTIC IMAGING REPORT ---
CHEST CTA for PULMONARY ARTERIES CT DOSE: 327.30 mGy.cm HISTORY: Syncope. Lung cancer. TECHNIQUE: Multiaxial CT images of the chest were performed following the intravenous administration of contrast to evaluate the pulmonary arteries. Maximal intensity projection images were also obtained. A dose lowering technique was utilized adhering to the principles of ALARA. COMPARISON STUDY: Outside hospital chest CT 01/24/2017. CT 12/31/2016. FINDINGS: No evidence for an aortic dissection. No pleural or pericardial effusions. No change in the filling defects seen within the proximal segmental branches of the right lower lobe pulmonary arteries. This is consistent with subacute to chronic pulmonary. No new pulmonary emboli identified. Multiple hepatic masses are again noted and not significantly changed. The spleen is enlarged. This is also similar in size. Visualized adrenal glands are unremarkable. Cholecystectomy. Left subclavian Port-A-Cath. Mild right hilar lymphadenopathy with the largest lymph node measuring 12 mm. This previous measured 1 cm. Healing right anterior rib fractures. No suspicious lytic or blastic osseous lesions. The Port-A-Cath terminates in the proximal SVC. No pneumothorax. The left lung is essentially clear. Stable 8 mm nodule within the base of the right lower lobe. Dense consolidation within the anterior segment of the right upper lobe with scattered surrounding tree-in-bud nodular opacities. Stable 4 mm nodule seen within the superior segment of the right lower lobe on image 186 within the right upper lobe posteriorly on image 167. Narrowing versus partial opacification within the proximal anterior segmental bronchi of the right upper lobe. IMPRESSION: 1. No change in the subacute to chronic pulmonary emboli seen within the segmental branches of the right lower lobe. No new abnormal identified. 2. Interval development of dense consolidation within the anterior segment of the right upper lobe with surrounding tree-in-bud nodular airspace opacities. This favors a pneumonia. Pulmonary infarct is considered less likely given the patent pulmonary arteries at this location. Underlying malignancy/metastatic disease cannot be excluded. One month chest CT follow up is recommended to ensure resolution following a course of antibiotic therapy. 3. Mildly enlarged right hilar lymph nodes which have progressed. This may be reactive or due to metastatic disease. 4. Stable subcentimeter pulmonary nodules within the right lung. 5. Hepatic masses are not significant changed. Electronically signed by: Amado Garces M.D. 02/23/2017 11:26 AM Dictated Date/Time: 02/23/2017 11:13 AM
[2017-02-23 12:40] VITALS: O2SAT 100; BMI 28.0
[2017-02-23] MEDS ORDERED: ACETAMINOPHEN 325 MG TAB PO PRN (12:45)
[2017-02-23] MEDS ORDERED: OXYCODONE/ACETAMINOPHEN 10/325MG TAB PO PRN (12:45)
[2017-02-23] MEDS ORDERED: ZOLPIDEM TARTRATE 5 MG TAB PO PRN (12:45)
[2017-02-23] MEDS ORDERED: ONDANSETRON INJ 2 MG/ML 2 ML VIAL IV PRN (12:45)
[2017-02-23] MEDS ORDERED: MoRPHine SULFATE 2 MG/ML CARP IV PRN (12:45)
[2017-02-23] MEDS ORDERED: PIPERACILLIN/TAZOBACTAM 4.5 GM/100ML D5W IV ONE (13:15)
[2017-02-23] MEDS ORDERED: HEPARIN 25000 UNIT/500 ML D5W ONE (13:25)
[2017-02-23] MEDS ORDERED: HEPARIN SOD 5000 UNIT/0.5 ML CARP ONE (13:25)
[2017-02-23] MEDS ORDERED: VANCOMYCIN INJ 2,300 MG in SODIUM CHLORIDE 0.9% 500ML 500 ML IV ONE (13:30)
[2017-02-23 13:38] VITALS: O2SAT 100
[2017-02-23] MEDS ORDERED: MoRPHine SULFATE 4 MG/ML 1 ML CARP\\VIAL IV PRN (13:45)
[2017-02-23 14:22] VITALS: BP 115/75; PULSE 68; TEMP 36.9; O2SAT 100
[2017-02-23] MEDS: NSS + 20MEQ KCL 1000ML 1,000 ML IV SCH ×2 (14:43→23:47)
--- NOTE | 2017-02-23 14:48 | History and Physical ---
History & Physical Date & Time of Service: Feb 23, 2017 at 14:31 Chief Complaint: Pulmonary Embolism,Syncope Primary Care Physician: Trevor Lawler Jr,D.O. History of Present Illness Source: patient The patient is a 61-year-old male who presents to the emergency department after a syncopal episode that occurred just prior to arrival. The patient is presently receiving chemotherapy treatment for his metastatic colon cancer to liver and lung. He just received his fourth chemotherapy treatment today, and is usually fatigued the day after chemotherapy treatment , was up urinating a lot last night, which was unusual for him, felt dehydrated this morning, and while working at the kitchen table he developed tunnel vision, felt like he was going to pass out, and by the time he was walking to a chair to sit down he passed out. He reports landing on his left side on the hardwood floor, received treatment for a left above the eye brow laceration, had x-rays of left wrist, elbow and shoulder all of which were negative. He also underwent a chest x-ray which showed a new wedge-shaped abnormality in the right middle lobe , which prompted a CT angiography of the chest, which revealed a new right upper lobe pneumonia. Radiology review of the previous CT from [facility] confirmed the presence of chronic pulmonary emboli and right lower lobe , which were unchanged on the CTA today, and worsening right hilar lymphadenopathy. Past Medical/Surgical History Medical Problems: (1) Asthma Status: Chronic Surgical Problems: (1) H/O knee surgery Status: Resolved (2) History of tonsillectomy Status: Resolved Family History Patient reports no known family medical history. Social History Smoking Status: Never Smoker Smokeless Tobacco Use: No Alcohol Use: none Drug Use: none Marital Status: Housing status: lives with family Occupational Status: employed Immunizations History of Tetanus Vaccine?: Yes History of Pneumococcal: No History of Hepatitis B Vaccine: Unknown Multi-Drug Resistant Organisms History of MDRO: No Allergies Coded Allergies: Poison Marlene Extract/Poison [place] Extra (Verified Allergy, Intermediate, Rash - poison marlene, 02/23/17) Home Medications Scheduled Multivitamin (Multivitamin), 1 TAB PO QAM Venlafaxine Hcl (Effexor Extended Rel), 75 MG PO DAILY Scheduled PRN Mometasone Furoate-Formoterol (Dulera 200/5 Mcg), 1 AER INH for PRN Ondansetron Hcl (Zofran), 8 MG PO Q8 PRN for Nausea Oxycodone/Acetaminophen 10MG/325MG (Percocet 10MG/325MG), 1 TAB PO Q4H PRN for Pain Review of Systems The patient denies chest pain, palpitations, shortness of breath, cough, lower extremity swelling, vision change, hearing change, sore throat, fevers, chills, sweats, nausea, vomiting, abdominal pain, pelvic pain, blood in urine or stool, dysuria, urinary frequency or urgency, headache, memory loss, rash, abnormal bruising or bleeding, focal or generalized weakness, numbness or tingling in arms or legs, generalized arthralgias or myalgias, back or neck pain, night sweats, or allergy symptoms. The review of systems is otherwise negative other than for that already noted above, and at least 10 systems have been reviewed. Physical Exam Vital Signs Date Time Temp Pulse Resp B/P (MAP) Pulse Ox O2 Delivery O2 Flow Rate FiO2 02/23/17 14:22 36.9 68 16 115/75 (88) 100 Room Air 02/23/17 13:38 61 18 118/78 100 02/23/17 12:40 100 Room Air 02/23/17 11:12 64 16 123/80 97 Room Air 02/23/17 09:32 71 20 130/72 97 Room Air 02/23/17 08:23 36.7 89 20 99/67 100 Room Air The patient is awake, well-developed and adequately nourished, alert and oriented 3, has sutures above his left eyebrow laceration, lying in bed and in no acute distress. HEENT--PERRL, EOMI, mucous membranes and oropharynx dry. Neck--supple, no JVD or bruits, thyroid normal, trachea midline, no adenopathy. Heart--normal S1 and S2, no extra beats, no murmurs, rubs or gallops. Lungs--clear bilaterally with good air movement, no respiratory distress, no accessory muscle use. Abdomen--normal bowel sounds and soft, nontender and nondistended, no hernias or masses, no organomegaly. Extremities--no cyanosis, clubbing or edema. There are good distal pulses b/l. Dermatologic--normal skin turgor, normal color, warm and dry, no abnormal lymph nodes, no rash. Neurologic--cranial nerves II through XII grossly intact, motor and sensory examination normal. Rheumatologic--normal range of motion, nontender, muscles and joints. Psychiatric--normal affect. Diagnostics Laboratory Results Results Past 24 Hours Test 02/23/17 08:39 02/23/17 08:50 02/23/17 08:53 Range/Units Creatine Kinase MB Ratio 0.9 0-3.0 White Blood Count 3.41 4.8-10.8 K/uL Red Blood Count 3.63 4.7-6.1 M/uL Hemoglobin 12.3 14.0-18.0 g/dL Hematocrit 35.9 42-52 % Mean Corpuscular Volume 98.9 80-100 fL Mean Corpuscular Hemoglobin 33.9 25-34 pg Mean Corpuscular Hemoglobin Concent 34.3 32-36 g/dl Platelet Count 151 130-400 K/uL Mean Platelet Volume 10.1 7.4-10.4 fL Neutrophils (%) (Auto) 77.5 % Lymphocytes (%) (Auto) 15.5 % Monocytes (%) (Auto) 3.2 % Eosinophils (%) (Auto) 3.5 % Basophils (%) (Auto) 0.3 % Neutrophils # (Auto) 2.64 1.4-6.5 K/uL Lymphocytes # (Auto) 0.53 1.2-3.4 K/uL Monocytes # (Auto) 0.11 0.11-0.59 K/uL Eosinophils # (Auto) 0.12 0-0.5 K/uL Basophils # (Auto) 0.01 0-0.2 K/uL RDW Standard Deviation 65.7 36.4-46.3 fL RDW Coefficient of Variation 18.0 11.5-14.5 % Immature Granulocyte % (Auto) 0.0 % Immature Granulocyte # (Auto) 0.00 0.00-0.02 K/uL Sodium Level 135 136-145 mmol/L Potassium Level 3.9 3.5-5.1 mmol/L Chloride Level 101 98-107 mmol/L Carbon Dioxide Level 28 21-32 mmol/L Anion Gap 6.0 3-11 mmol/L Blood Urea Nitrogen 18 7-18 mg/dl Creatinine 0.96 0.60-1.40 mg/dl Est Creatinine Clear Calc Drug Dose 95.6 ml/min Estimated GFR () 99.9 Estimated GFR (Non- 86.2 BUN/Creatinine Ratio 18.5 10-20 Random Glucose 82 70-99 mg/dl Calcium Level 8.8 8.5-10.1 mg/dl Total Bilirubin 2.3 0.2-1 mg/dl Direct Bilirubin 0-0.2 mg/dl Aspartate Amino Transf (AST/SGOT) 103 15-37 U/L Alanine Aminotransferase (ALT/SGPT) 104 12-78 U/L Alkaline Phosphatase 249 45-117 U/L Total Creatine Kinase 80 39-308 U/L Creatine Kinase MB 0.7 0.5-3.6 ng/ml Total Protein 7.5 6.4-8.2 gm/dl Albumin 3.3 3.4-5.0 gm/dl Lipase 176 73-393 U/L Chemistry Specimen Hemolysis Bedside Troponin I < 0.030 0-0.045 ng/ml Diagnostic Radiology Patient Name: BRITTANY RODRIGUEZ Unit Number: [id number] Dictated: 02/23/17955 Transcribed: 02/23/17955 [facility] Printed Date/Time: [~ rep prt dt]/[~ rep prt tm] [~ rep ct labl] - [~ rep ct ivnm] [facility] [place] [address] Dictated: 02/23/17955 Transcribed: 02/23/17955 [facility] Printed Date/Time: [~ rep prt dt]/[~ rep prt tm] [~ rep ct labl] - [~ rep ct ivnm] LEFT WRIST 4 VIEWS HISTORY: eval for trauma COMPARISON: None. FINDINGS: There is no fracture or dislocation. Soft tissues are unremarkable. No radiopaque foreign bodies. Severe osteoarthritis at the first carpometacarpal joint and moderate osteoarthritis at the STT joint. IMPRESSION: No fractures. Electronically signed by: Amado Garces M.D. 02/23/2017 9:57 AM Dictated Date/Time: 02/23/2017 9:56 AM The status of this report is Signed. Draft = Not yet reviewed or approved by Radiologist. Signed = Reviewed and approved by Radiologist. <AttendingPhy></AttendingPhy> <FamilyPhy>Lawler, Trevor B.,Jr,D.O.</FamilyPhy> < PrimaryPhy>Trevor Lawler Jr,DemetriusO.</PrimaryPhy> <UnitNumber>[id number]</ UnitNumber> <VisitNumber>[id number]</VisitNumber> <PatientName>BRITTANY RODRIGUEZ </PatientName> <DateOfBirth>1955</DateOfBirth> <Location>[facility]</Location> <ServiceDate>02/23/17</ServiceDate> <MNE>ESINDI</MNE> <OrderingPhy>Michael Maloney M.D.</OrderingPhy> <OrderingPhyMNE>f rep ord dr wheat</OrderingPhyMNE> < DictatingPhyMNE>f rep dict dr wheat</DictatingPhyMNE> <CCListMNE>f rep ct mne</ CCListMNE> <AdmittingPhyMNE>f pt admit dr whaet</AdmittingPhyMNE> <AttendingPhyMNE >f pt attend dr wheat</AttendingPhyMNE> <ConsultingPhyMNE>f pt consult dr wheat</ConsultingPhyMNE> <FamilyPhyMNE>f pt fam dr wheat</FamilyPhyMNE> <OtherPhyMNE>f pt other dr wheat</OtherPhyMNE> < PrimaryPhyMNE>f pt prim care dr wheat</PrimaryPhyMNE> <ReferringPhyMNE>f pt referring dr wheat</ReferringPhyMNE> Patient Name: BRITTANY RODRIGUEZ Unit Number: [id number] Dictated: 02/23/17952 Transcribed: 02/23/17952 [facility] Printed Date/Time: [~ rep prt dt]/[~ rep prt tm] [~ rep ct labl] - [~ rep ct ivnm] [facility] [place] [address] Dictated: 02/23/17952 Transcribed: 02/23/17952 [facility] Printed Date/Time: [~ rep prt dt]/[~ rep prt tm] [~ rep ct labl] - [~ rep ct ivnm] LEFT SHOULDER 3 VIEWS HISTORY: eval for trauma COMPARISON: None. FINDINGS: There is no fracture or dislocation. Soft tissues are unremarkable. The left clavicle is intact. Left subclavian Port-A-Cath. Moderate degenerative changes within the left shoulder. IMPRESSION: No fractures. Electronically signed by: Amado Garces M.D. 02/23/2017 9:54 AM Dictated Date/Time: 02/23/2017 9:53 AM The status of this report is Signed. Draft = Not yet reviewed or approved by Radiologist. Signed = Reviewed and approved by Radiologist. <AttendingPhy></AttendingPhy> <FamilyPhy>Trevor Lawler Jr,D.O.</FamilyPhy> < PrimaryPhy>Trevor Lawler Jr,D.O.</PrimaryPhy> <UnitNumber>[id number]</ UnitNumber> <VisitNumber>[id number]</VisitNumber> <PatientName>GUSTAVOBRITTANY Carlisle </PatientName> <DateOfBirth>1955</DateOfBirth> <Location>C.EDB</Location> <ServiceDate>02/23/17</ServiceDate> <MNE>ESINDI</MNE> <OrderingPhy>Michael Maloney M.D.</OrderingPhy> <OrderingPhyMNE>f rep ord dr wheat</OrderingPhyMNE> < DictatingPhyMNE>f rep dict dr wheat</DictatingPhyMNE> <CCListMNE>f rep ct mne</ CCListMNE> <AdmittingPhyMNE>f pt admit dr wheat</AdmittingPhyMNE> <AttendingPhyMNE >f pt attend dr wheat</AttendingPhyMNE> <ConsultingPhyMNE>f pt consult dr wheat</ConsultingPhyMNE> <FamilyPhyMNE>f pt fam dr wheat</FamilyPhyMNE> <OtherPhyMNE>f pt other dr wheat</OtherPhyMNE> < PrimaryPhyMNE>f pt prim care dr wheat</PrimaryPhyMNE> <ReferringPhyMNE>f pt referring dr wheat</ReferringPhyMNE> Patient Name: BRITTANY RODRIGUEZ Unit Number: [id number] Dictated: 02/23/17953 Transcribed: 02/23/17953 [facility] Printed Date/Time: [~ rep prt dt]/[~ rep prt tm] [~ rep ct labl] - [~ rep ct ivnm] [facility] [place] [address] Dictated: 02/23/17953 Transcribed: 02/23/17953 [facility] Printed Date/Time: [~ rep prt dt]/[~ rep prt tm] [~ rep ct labl] - [~ rep ct ivnm] [~ rep ct add3]] LEFT ELBOW 3 VIEWS HISTORY: Left elbow pain. eval for trauma COMPARISON: None. FINDINGS: There is no fracture or dislocation. Soft tissues are unremarkable. No definite elbow effusion. IMPRESSION: No fractures or dislocation within the left elbow. Electronically signed by: Amado Garces M.D. 02/23/2017 9:56 AM Dictated Date/Time: 02/23/2017 9:54 AM The status of this report is Signed. Draft = Not yet reviewed or approved by Radiologist. Signed = Reviewed and approved by Radiologist. <AttendingPhy></AttendingPhy> <FamilyPhy>Trevor Lawler Jr,D.O.</FamilyPhy> < PrimaryPhy>Trevor Lawler Jr,D.O.</PrimaryPhy> <UnitNumber>[id number]</ UnitNumber> <VisitNumber>[id number]</VisitNumber> <PatientName>BRITTANY RODRIGUEZ </PatientName> <DateOfBirth>1955</DateOfBirth> <Location>[facility].ED[facility]</Location> <ServiceDate>02/23/17</ServiceDate> <MNE>ESINDI</MNE> <OrderingPhy>Michael Maloney M.D.</OrderingPhy> <OrderingPhyMNE>f rep ord dr wheat</OrderingPhyMNE> < DictatingPhyMNE>f rep dict dr wheat</DictatingPhyMNE> <CCListMNE>f rep ct mne</ CCListMNE> <AdmittingPhyMNE>f pt admit dr wheat</AdmittingPhyMNE> <AttendingPhyMNE >f pt attend dr wheat</AttendingPhyMNE> <ConsultingPhyMNE>f pt consult dr wheat</ConsultingPhyMNE> <FamilyPhyMNE>f pt fam dr wheat</FamilyPhyMNE> <OtherPhyMNE>f pt other dr wheat</OtherPhyMNE> < PrimaryPhyMNE>f pt prim care dr wheat</PrimaryPhyMNE> <ReferringPhyMNE>f pt referring dr wheat</ReferringPhyMNE> Patient Name: BRITTANY RODRIGUEZ Unit Number: [id number] Dictated: 02/23/17956 Transcribed: 02/23/17956 [facility] Printed Date/Time: [~ rep prt dt]/[~ rep prt tm] [~ rep ct labl] - [~ rep ct ivnm] [facility] Radiology Department [place], [place] [id number] Dictated: 02/23/17956 Transcribed: 02/23/17956 [facility] Printed Date/Time: [~ rep prt dt]/[~ rep prt tm] [~ rep ct labl] - [~ rep ct ivnm] [~ rep ct add3]] CHEST 2 VIEWS ROUTINE HISTORY: Syncope. COMPARISON: Outside hospital chest CT 01/24/2017. FINDINGS: No pleural effusions. No pneumothorax. The heart is normal in size. Left subclavian Port-A-Cath terminates at the proximal SVC. The left lung is clear. There is a new wedge-shaped opacity within the anterior aspect of the right middle lobe. IMPRESSION: A new wedge-shaped opacity within the anterior right middle lobe. This is nonspecific but could represent a pulmonary infarct given the evidence of pulmonary emboli on the 01/24/[address] Atelectasis or pneumonia could also have a similar appearance. Electronically signed by: Amado Garces M.D. 02/23/2017 10:04 AM Dictated Date/Time: 02/23/2017 9:57 AM The status of this report is Signed. Draft = Not yet reviewed or approved by Radiologist. Signed = Reviewed and approved by Radiologist. <AttendingPhy></AttendingPhy> <FamilyPhy>Trevor Lawler Jr,D.O.</FamilyPhy> < PrimaryPhy>Trevor Lawler Jr,D.O.</PrimaryPhy> <UnitNumber>[id number]</ UnitNumber> <VisitNumber>[id number]</VisitNumber> <PatientName>GABINO RODRIGUEZEL Dina </PatientName> <DateOfBirth>1955</DateOfBirth> <Location>[facility]</Location> <ServiceDate>02/23/17</ServiceDate> <MNE>ESINDI</MNE> <OrderingPhy>Michael Maloney M.D.</OrderingPhy> <OrderingPhyMNE>f rep ord dr wheat</OrderingPhyMNE> < DictatingPhyMNE>f rep dict dr wheat</DictatingPhyMNE> <CCListMNE>f rep ct mne</ CCListMNE> <AdmittingPhyMNE>f pt admit dr wheat</AdmittingPhyMNE> <AttendingPhyMNE >f pt attend dr wheat</AttendingPhyMNE> <ConsultingPhyMNE>f pt consult dr wheat</ConsultingPhyMNE> <FamilyPhyMNE>f pt fam dr wheat</FamilyPhyMNE> <OtherPhyMNE>f pt other dr wheat</OtherPhyMNE> < PrimaryPhyMNE>f pt prim care dr wheat</PrimaryPhyMNE> <ReferringPhyMNE>f pt referring dr wheat</ReferringPhyMNE> Patient Name: BRITTANY RODRIGUEZ Unit Number: [id number] Dictated: 02/23/17911 Transcribed: 02/23/17911 [facility] Printed Date/Time: [~ rep prt dt]/[~ rep prt tm] [~ rep ct labl] - [~ rep ct ivnm] [facility] [place] [address] Dictated: 02/23/17911 Transcribed: 02/23/17911 [facility] Printed Date/Time: [~ rep prt dt]/[~ rep prt tm] [~ rep ct labl] - [~ rep ct ivnm] HEAD CT NONCONTRAST CT DOSE: 614.27 mGy.cm HISTORY: Syncope. Head injury. eval for trauma TECHNIQUE: Multiaxial CT images of the head were performed without the use of intravenous contrast. Automated exposure control was utilized for this study. A dose lowering technique was utilized adhering to the principles of ALARA. Comparison: Head CT 12/31/2016. Findings: The paranasal sinuses and mastoid air cells are clear. The calvarium and skull base are intact. There is no mass, hematoma, midline shift, acute infarct. The ventricles and sulci demonstrate mild age-related involutional changes. This remains unchanged. Healed left mandibular condyle fracture. No significant healing within the old right mandibular condyle fracture. Left supraorbital soft tissue laceration. Impression: No acute intracranial abnormality. Left supraorbital soft tissue laceration. Healed left mandibular condyle fracture. No significant healing within the old right mandibular condyle fracture. Electronically signed by: Amado Garces M.D. 02/23/2017 9:18 AM Dictated Date/Time: 02/23/2017 9:12 AM The status of this report is Signed. Draft = Not yet reviewed or approved by Radiologist. Signed = Reviewed and approved by Radiologist. <AttendingPhy></AttendingPhy> <FamilyPhy>Trevor Lawler Jr,D.O.</FamilyPhy> < PrimaryPhy>Trevor Lawlre Jr,D.O.</PrimaryPhy> <UnitNumber>[id number]</ UnitNumber> <VisitNumber>[id number]</VisitNumber> <PatientName>BRITTANY RODRIGUEZ </PatientName> <DateOfBirth>1955</DateOfBirth> <Location>[facility]</Location> <ServiceDate>02/23/17</ServiceDate> <MNE>ESINDI</MNE> <OrderingPhy>Michael Maloney M.D.</OrderingPhy> <OrderingPhyMNE>f rep ord dr wheat</OrderingPhyMNE> < DictatingPhyMNE>f rep dict dr wheat</DictatingPhyMNE> <CCListMNE>f rep ct mne</ CCListMNE> <AdmittingPhyMNE>f pt admit dr wheat</AdmittingPhyMNE> <AttendingPhyMNE >f pt attend dr wheat</AttendingPhyMNE> <ConsultingPhyMNE>f pt consult dr wheat</ConsultingPhyMNE> <FamilyPhyMNE>f pt fam dr wheat</FamilyPhyMNE> <OtherPhyMNE>f pt other dr wheat</OtherPhyMNE> < PrimaryPhyMNE>f pt prim care dr wheat</PrimaryPhyMNE> <ReferringPhyMNE>f pt referring dr wheat</ReferringPhyMNE> Patient Name: BRITTANY RODRIGUEZ Unit Number: [id number] Dictated: 02/23/171112 Transcribed: 02/23/171112 [facility] Printed Date/Time: [~ rep prt dt]/[~ rep prt tm] [~ rep ct labl] - [~ rep ct ivnm] [facility] Radiology Department [place] [id number] Dictated: 02/23/171112 Transcribed: 02/23/17 111 [facility] Printed Date/Time: [~ rep prt dt]/[~ rep prt tm] [~ rep ct labl] - [~ rep ct ivnm] CHEST CTA for PULMONARY ARTERIES CT DOSE: 327.30 mGy.cm HISTORY: Syncope. Lung cancer. TECHNIQUE: Multiaxial CT images of the chest were performed following the intravenous administration of contrast to evaluate the pulmonary arteries. Maximal intensity projection images were also obtained. A dose lowering technique was utilized adhering to the principles of ALARA. COMPARISON STUDY: Outside hospital chest CT 01/24/2017. CT 12/31/2016. FINDINGS: No evidence for an aortic dissection. No pleural or pericardial effusions. No change in the filling defects seen within the proximal segmental branches of the right lower lobe pulmonary arteries. This is consistent with subacute to chronic pulmonary. No new pulmonary emboli identified. Multiple hepatic masses are again noted and not significantly changed. The spleen is enlarged. This is also similar in size. Visualized adrenal glands are unremarkable. Cholecystectomy. Left subclavian Port-A-Cath. Mild right hilar lymphadenopathy with the largest lymph node measuring 12 mm. This previous measured 1 cm. Healing right anterior rib fractures. No suspicious lytic or blastic osseous lesions. The Port-A-Cath terminates in the proximal SVC. No pneumothorax. The left lung is essentially clear. Stable 8 mm nodule within the base of the right lower lobe. Dense consolidation within the anterior segment of the right upper lobe with scattered surrounding tree-in-bud nodular opacities. Stable 4 mm nodule seen within the superior segment of the right lower lobe on image 186 within the right upper lobe posteriorly on image 167. Narrowing versus partial opacification within the proximal anterior segmental bronchi of the right upper lobe. IMPRESSION: 1. No change in the subacute to chronic pulmonary emboli seen within the segmental branches of the right lower lobe. No new abnormal identified. 2. Interval development of dense consolidation within the anterior segment of the right upper lobe with surrounding tree-in-bud nodular airspace opacities. This favors a pneumonia. Pulmonary infarct is considered less likely given the patent pulmonary arteries at this location. Underlying malignancy/metastatic disease cannot be excluded. One month chest CT follow up is recommended to ensure resolution following a course of antibiotic therapy. 3. Mildly enlarged right hilar lymph nodes which have progressed. This may be reactive or due to metastatic disease. 4. Stable subcentimeter pulmonary nodules within the right lung. 5. Hepatic masses are not significant changed. Electronically signed by: Amado Garces M.D. 02/23/2017 11:26 AM Dictated Date/Time: 02/23/2017 11:13 AM The status of this report is Signed. Draft = Not yet reviewed or approved by Radiologist. Signed = Reviewed and approved by Radiologist. <AttendingPhy></AttendingPhy> <FamilyPhy>Trevor Lawler Jr,D.O.</FamilyPhy> < PrimaryPhy>Trevor Lawler Jr,D.O.</PrimaryPhy> <UnitNumber>[id number]</ UnitNumber> <VisitNumber>[id number]</VisitNumber> <PatientName>BRITTANY RODRIGUEZ </PatientName> <DateOfBirth>1955</DateOfBirth> <Location>[facility]</Location> <ServiceDate>02/23/17</ServiceDate> <MNE>ESINDI</MNE> <OrderingPhy>Michael Maloney M.D.</OrderingPhy> <OrderingPhyMNE>f rep ord dr wheat</OrderingPhyMNE> < DictatingPhyMNE>f rep dict dr wheat</DictatingPhyMNE> <CCListMNE>f rep ct darrene</ CCListMNE> <AdmittingPhyMNE>f pt admit dr wheat</AdmittingPhyMNE> <AttendingPhyMNE >f pt attend dr wheat</AttendingPhyMNE> <ConsultingPhyMNE>f pt consult dr wheat</ConsultingPhyMNE> <FamilyPhyMNE>f pt fam dr wheat</FamilyPhyMNE> <OtherPhyMNE>f pt other dr wheat</OtherPhyMNE> < PrimaryPhyMNE>f pt prim care dr wheat</PrimaryPhyMNE> <ReferringPhyMNE>f pt referring dr wheat</ReferringPhyMNE> EKG EKG shows normal sinus rhythm at 66 bpm, no acute ST-T changes, and no change compared to 12/31/2016. Impression Assessment and Plan Syncope/dehydration/postchemotherapy fatigue--The patient will be admitted to telemetry for serial cardiac enzymes, cardiac rhythm monitoring and a 2-D echocardiogram with Dopplers. Place on normal saline with KCl 20 mEq at 125 ML's per hour. Treat pulmonary emboli and pneumonia. Right lower lobe chronic pulmonary emboli--were found on the previous CT from [facility] and confirmed today at [facility]. We'll order lower extremity bilateral venous Dopplers. Start heparin IV standard dose with protocol. Right upper lobe pneumonia-- Vancomycin IV per pharmacokinetic dosing, and Zosyn 3.375 mg IV every 8 hours. Xopenex/Atrovent high flow nebulizers every 2 hours when necessary. Metastatic colon adenocarcinoma to liver and lung-consult his oncologist Dr. Campuzano. Depression--continue venlafaxine ER 75 mg by mouth daily. Level of Care Telemetry Advanced Directives Existing Advance Directive: No Existing Living Will: No Existing Power of Single Spindle Screw Machine Operator: No Resuscitation Status FULL RESUSCITATION VTE Prophylaxis VTE Risk Assessment Done? Y/N: Yes Risk Level: High Given or contraindicated: Other Anticoagulation (IV heparin, standard dose with bolus per protocol) Social Service Consult Cancer Patient Under [place]
[2017-02-23] MEDS: HEPARIN 25,000 UNIT/500ML D5W 500 ML IV PRN (15:19)
--- NOTE | 2017-02-23 16:17 | DIAGNOSTIC IMAGING REPORT ---
BILATERAL LOWER EXTREMITY VENOUS DOPPLER HISTORY: Pulmonary emboli. Assess for DVT. COMPARISON STUDY: None. FINDINGS: There is normal compressibility, flow, and augmentation within the right lower extremity deep venous system. Occlusive DVT seen within the proximal left superficial femoral vein and distal left popliteal vein. Nonocclusive DVT seen throughout the remaining portions of the left superficial femoral vein and popliteal vein. Occlusive DVT seen within one of 2 left posterior tibial veins. IMPRESSION: 1. No DVT within the right lower externally. 2. DVT within the left lower extremity as described above. Electronically signed by: Amado Garces M.D. 02/23/2017 4:16 PM Dictated Date/Time: 02/23/2017 4:14 PM
[2017-02-23 16:26] VITALS: BP 130/83; PULSE 64; TEMP 37.1; O2SAT 100
[2017-02-23] MEDS: FAMOTIDINE IV INJ 20 MG in DEXTROSE 5% 100ML 100 ML IV SCH (18:02)
[2017-02-23] MEDS ORDERED: VANCOMYCIN CONSULT ACTIVE PRN (18:30)
[2017-02-23] MEDS ORDERED: PIPERACILL/TAZOBAC CONSULT ACTIVE PRN (18:30)
--- NOTE | 2017-02-23 18:32 | Pharmacy Progress Note ---
Pharmacy Abx Initial Consult Date of Service Feb 23, 2017. Pharmacy Dosing Scope Date of Consult: 02/23/17 Consultation requested by: Dr. Manjarrez Pharmacy is consulted to initiate IV Vancomycin/Zosyn dosing therapy, order appropriate labs and adjust drug dose/frequency. Subjective The patient is a 61 year old male admitted on Feb 23, 2017 at 13:58. Objective Height (Feet): 5 Height (Inches): 11.00 Weight (Kilograms): 91.000 Vital Signs (Past 12Hrs) Vital Signs Past 12 Hours Date Time Temp Pulse Resp B/P (MAP) Pulse Ox O2 Delivery O2 Flow Rate FiO2 02/23/17 16:26 37.1 64 18 130/83 (99) 100 Room Air 02/23/17 14:22 36.9 68 16 115/75 (88) 100 Room Air 02/23/17 13:38 61 18 118/78 100 02/23/17 12:40 100 Room Air 02/23/17 11:12 64 16 123/80 97 Room Air 02/23/17 09:32 71 20 130/72 97 Room Air 02/23/17 08:23 36.7 89 20 99/67 100 Room Air Lab Results (24Hrs) Laboratory Tests (24 Hours) Test 02/23/17 08:50 White Blood Count 3.41 K/uL (4.8-10.8) L Red Blood Count 3.63 M/uL (4.7-6.1) L Hemoglobin 12.3 g/dL (14.0-18.0) L Hematocrit 35.9 % (42-52) L Mean Corpuscular Volume 98.9 fL (80-100) Mean Corpuscular Hemoglobin 33.9 pg (25-34) Mean Corpuscular Hemoglobin Concent 34.3 g/dl (32-36) Platelet Count 151 K/uL (130-400) Mean Platelet Volume 10.1 fL (7.4-10.4) Neutrophils (%) (Auto) 77.5 % Lymphocytes (%) (Auto) 15.5 % Monocytes (%) (Auto) 3.2 % Eosinophils (%) (Auto) 3.5 % Basophils (%) (Auto) 0.3 % Neutrophils # (Auto) 2.64 K/uL (1.4-6.5) Lymphocytes # (Auto) 0.53 K/uL (1.2-3.4) L Monocytes # (Auto) 0.11 K/uL (0.11-0.59) Eosinophils # (Auto) 0.12 K/uL (0-0.5) Basophils # (Auto) 0.01 K/uL (0-0.2) Total Creatine Kinase 80 U/L (39-308) Risk Factors for Resistance * Immunocompromised (chronic steroid therapy, chemotherapy, immunomodulators) Assessment & Plan Assessment 61 yo M admitted with PE & RUL pnx currently receiving chemo for colon cancer with mets to liver/lung Plan Vancomycin IV * Loading dose: Vancomycin 2300mg IV x 1 dose (25mg/kg) * Maintenance dose: Vancomycin 1350mg IV q18h (15mg/kg) * Goal trough level for: pneumonia: 15-20mcg/mL * Trough level ordered for: 02/25/17 0600 dose Piperacillin/tazobactam * 4.5gm bolus administered over 30 minutes, then 3.375gm IV extended infusion every 8 hours for CrCl greater than 20 mL/min Pharmacy will continue to follow and will adjust dose/frequency as necessary. Thank you.
[2017-02-23] MEDS: PIPERACILL/TAZOBAC IV 3.375 GM in DEXTROSE 5% 100ML 100 ML IV SCH (19:01)
[2017-02-23 19:46] VITALS: BP 119/77; PULSE 59; TEMP 37; O2SAT 100
[2017-02-23 20:10] LABS: PARTIAL THROMBOPLASTIN RATIO 1.9
[2017-02-23 23:51] VITALS: BP 113/73; PULSE 61; TEMP 37.2; O2SAT 100
[2017-02-24] MEDS ORDERED: VANCOMYCIN INJ 1,350 MG in SODIUM CHLORIDE 0.9% 250ML 250 ML IV SCH ×2
[2017-02-24] MEDS: PIPERACILL/TAZOBAC IV 3.375 GM in DEXTROSE 5% 100ML 100 ML IV SCH (04:00)
[2017-02-24 04:10] VITALS: BP 118/77; PULSE 61; TEMP 36.5; O2SAT 100
[2017-02-24 06:07] LABS: HEMATOCRIT 29.5 % (42-52); MEAN CORPUSCULAR HEMOGLOBIN 34.6 pg (25-34); MEAN CORPUSCULAR HGB CONC 34.9 g/dl (32-36); RED BLOOD COUNT 2.98 M/uL (4.7-6.1); WHITE BLOOD COUNT 2.25 K/uL (4.8-10.8)
[2017-02-24] MEDS: FAMOTIDINE IV INJ 20 MG in DEXTROSE 5% 100ML 100 ML IV SCH (06:09)
[2017-02-24 06:18] VITALS: Ht 180.3 cm; Wt 89.9 kg
[2017-02-24 06:39] LABS: PARTIAL THROMBOPLASTIN RATIO 2.3; PROTHROMBIN TIME (PATIENT) 10.3 SECONDS (9.0-12.0)
[2017-02-24 06:50] LABS: BUN/CREATININE RATIO 18.6 (10-20); CALCIUM 8.6 mg/dl (8.5-10.1); CREATININE 0.84 mg/dl (0.60-1.40); MAGNESIUM 2.4 mg/dl (1.8-2.4); POTASSIUM 4.3 mmol/L (3.5-5.1)
[2017-02-24 07:02] LABS: MEAN PLATELET VOLUME 9.1 fL (7.4-10.4); PLATELET COUNT 94 K/uL (130-400)
[2017-02-24 07:04] LABS: ANISOCYTOSIS PRESENT; BASO % 0.4 %; BASO ABS # 0.01 K/uL (0-0.2); COMPLETE YES; EOS % 2.7 %; LYMPH ABS # 0.54 K/uL (1.2-3.4); MONO % 4.4 %; NEUT % 68.5 %; PLT ESTIMATE DECREASED
[2017-02-24 07:05] VITALS: BP 130/82; PULSE 65; TEMP 36.9; O2SAT 99
[2017-02-24] MEDS: HEPARIN 25,000 UNIT/500ML D5W 500 ML IV PRN (07:29)
[2017-02-24] MEDS ORDERED: VENLAFAXINE HCL XR 75 MG CAPXR PO SCH (08:00)
[2017-02-24] MEDS ORDERED: MULTIVITAMIN TAB PO SCH (08:00)
--- NOTE | 2017-02-24 08:30 | Oncology Consultation ---
Oncology/Heme Consultation Date of Consultation: Feb 24, 2017. Attending Physician: Fran Manjarrez M.D. Reason for Consultation: Continuum of care for 61-year-old gentleman with end-stage metastatic colorectal cancer. History of Present Illness Drake is a pleasant 61-year-old gentleman well-known to the cancer care partnership diagnosed with metastatic colorectal cancer in September 2015. Presently he had been receiving intrahepatic FUDR in combination with FOLFIRI last administered on February 20. For the most part treatment has been well tolerated and when he awoke Friday morning apparently suffered a syncopal episode which was not witnessed. He admits waking up approximate 7:30 in the morning to feed his pets at which time began to experience blurring of vision and lightheadedness when he attempted to sit down he fainted falling to the floor striking the left side of his face suffering a laceration above the left brow. Again the event was unwitnessed and therefore loss of consciousness is indeterminant. He was able to summon help through a neighbor who activated 911 and subsequently transported in the hospital. He underwent CT scan of the head was essentially negative for intracerebral abnormalities. Part of his admitting workup included chest x-ray which revealed a wedged shaped anomaly suggestive of an infiltrate. Apparently Drake has undergone CT scan of the chest ordered by consultants in [place] which revealed chronic PEs. The patient was not informed of these findings. Repeat CTA of the chest confirmed the presence of chronic PEs. He denies any symptomatology such chest pain shortness of breath or dyspnea on exertion. Nonetheless was admitted to the hospitalist service and placed on intravenous heparin. Drake reports polyuria the night before leading up to the syncopal event and attributes possible dehydration as the provoking circumstance. Chest CT also reveals a right upper lobe infiltrate and hilar lymphadenopathy believed to be either reactive or possibly neoplastic. Clinically, the patient feels well and wishes to be discharged as soon as possible as a trip to [place] is planned on Friday. Past Medical/Surgical History Medical Problems: (1) Chest wall contusion Status: Acute (2) Chin laceration Status: Acute (3) Dehydration Status: Acute (4) Elevated LFTs Status: Acute (5) Mandibular fracture, closed Status: Acute (6) Metastatic cancer to liver Status: Acute (7) Precordial chest pain Status: Acute (8) Pulmonary emboli Status: Acute (9) SIRS (systemic inflammatory response syndrome) Status: Acute (10) Syncope Status: Acute (11) Syncope due to orthostatic hypotension Status: Acute (12) Thrombocytopenia Status: Acute Family History Patient reports no known family medical history. Negative for colorectal cancer. 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 Smoking Status: Never Smoker Smokeless Tobacco Use: No Alcohol Use: none Drug Use: none Marital Status: Housing Status: lives with family Occupation Status: employed Allergies Coded Allergies: Poison Marlene Extract/Poison [place] Extra (Verified Allergy, Intermediate, Rash - poison marlene, 02/23/17) Home Medications Scheduled Multivitamin (Multivitamin), 1 TAB PO QAM Venlafaxine Hcl (Effexor Extended Rel), 75 MG PO DAILY Scheduled PRN Mometasone Furoate-Formoterol (Dulera 200/5 Mcg), 1 AER INH for PRN Ondansetron Hcl (Zofran), 8 MG PO Q8 PRN for Nausea Oxycodone/Acetaminophen 10MG/325MG (Percocet 10MG/325MG), 1 TAB PO Q4H PRN for Pain Current Inpatient Medications Current Inpatient Medications Medications (Trade) Dose Ordered Sig/Franky Route Start Time Stop Time Status Last Admin Dose Admin Ioversol (Optiray 320) 125 ml UD PRN IV 02/23/17 10:45 02/27/17 10:44 Acetaminophen (Tylenol Tab) 650 mg Q4H PRN PO 02/23/17 12:45 03/25/17 12:44 02/23/17 23:46 650 MG Zolpidem Tartrate (Ambien Tab) 5 mg HSZ PRN PO 02/23/17 12:45 03/25/17 12:44 Ondansetron HCl (Zofran Inj) 4 mg Q6H PRN IV 02/23/17 12:45 03/25/17 12:44 Potassium Chloride/Sodium Chloride 1,000 ml @ 100 mls/hr Q10H IV 02/23/17 14:30 03/25/17 14:29 02/23/17 23:47 100 MLS/HR Morphine Sulfate (MoRPHine SULFATE INJ) 2 mg Q2H PRN IV 02/23/17 12:45 03/09/17 12:44 Multivitamins (Multivitamin Tab) 1 tab QAM PO 02/24/17 08:00 9/6/17 08:59 Oxycodone/ Acetaminophen (Percocet 10-325MG Tab) 1 tab Q4H PRN PO 02/23/17 12:45 03/09/17 12:44 Venlafaxine HCl (effeXOR EXTENDED REL CAP) 75 mg DAILY PO 02/24/17 08:00 03/26/17 08:59 Vancomycin HCl 1350 mg/Sodium Chloride 277 ml @ 125 mls/hr Q10H IV 02/24/17 00:00 03/03/17 00:00 02/23/17 23:47 125 MLS/HR Piperacillin Sod/ Tazobactam Sod 3.375 gm/Dextrose 115 ml @ 28.75 mls/ hr Q8H IV 02/23/17 18:00 03/02/17 17:59 02/24/17 04:00 28.75 MLS/HR Morphine Sulfate (MoRPHine SULFATE INJ) 4 mg Q2H PRN IV 02/23/17 13:45 03/09/17 13:44 Heparin Sodium/ Dextrose 500 ml @ 29 mls/hr [id number] PRN IV 02/23/17 14:15 03/25/17 14:14 02/24/17 07:29 29 MLS/HR Vancomycin HCl (Consult) 1 ea UD PRN N/A 02/23/17 18:30 03/25/17 18:29 Piperacillin Sod/ Tazobactam Sod (Consult) 1 ea UD PRN N/A 02/23/17 18:30 03/25/17 18:29 Review of Systems Constitutional: No fever, No chills, No sweats, No weight loss, No weakness, No fatigue, No problem reported Eyes: No worsening of vision, No eye pain, No redness, No discharge, No diplopia, No problem reported ENT: No hearing loss, No unusual epistaxis, No nasal symptoms, No sore throat, No tinnitus, No dental problems, No trouble swallowing, No problem reported Respiratory: No cough, No sputum, No wheezing, No shortness of breath, No dyspnea on exertion, No dyspnea at rest, No hemoptysis, No problem reported Cardiovascular: No chest pain, No orthopnea, No PND, No edema, No claudication , No palpitations, No problem reported Abdomen: No pain, No nausea, No vomiting, No diarrhea, No constipation, No GI bleeding, No problem reported Musculoskeletal: No joint pain, No muscle pain, No swelling, No calf pain, No problem reported Genitourinary - Male: No hematuria, No dysuria, No urinary frequency, No urinary urgency, No urinary hesitancy, No urinary retention, No urinary incontinence, No penile discharge, No lesions, No impotence, No problem reported Neurologic: + problem reported (positive for syncopal episode) Psychiatric: No depression symptoms, No anhedonism, No anxiety, No insomnia, No substance abuse, No problem reported Endocrine: + problem reported (reported polyuria prior to syncopal episode.) Hematologic / Lymphatic: + problem reported (treatment-induced cytopenias) Integumentary: + problem reported (centimeter length laceration above the left brow requiring sutures.) Physical Exam Date Time Temp Pulse Resp B/P (MAP) Pulse Ox O2 Delivery O2 Flow Rate FiO2 02/24/17 07:05 36.9 65 20 130/82 (98) 99 Room Air 02/24/17 04:10 36.5 61 20 118/77 (91) 100 Room Air 02/24/17 00:00 Room Air 02/23/17 23:51 37.2 61 18 113/73 (86) 100 Room Air 02/23/17 19:46 37.0 59 20 119/77 (91) 100 Room Air 02/23/17 16:26 Room Air 02/23/17 16:26 37.1 64 18 130/83 (99) 100 Room Air 02/23/17 14:22 36.9 68 16 115/75 (88) 100 Room Air 02/23/17 13:38 61 18 118/78 100 02/23/17 12:40 100 Room Air 02/23/17 11:12 64 16 123/80 97 Room Air 02/23/17 09:32 71 20 130/72 97 Room Air 02/23/17 08:23 36.7 89 20 99/67 100 Room Air General Appearance: WD/WN, no apparent distress Head: normocephalic, atraumatic Eyes: normal inspection, PERRL, EOMI ENT: normal ENT inspection Neck: supple Respiratory/Chest: chest non-tender, lungs clear, normal breath sounds Cardiovascular: regular rate, rhythm, no edema, no JVD, no murmur Abdomen/GI: normal bowel sounds, non tender, soft, no organomegaly Extremities/Musculoskelatal: normal inspection, no calf tenderness Neurologic/Psych: machine edge bander II-XII nml as tested Skin: normal color, warm/dry, no rash Lymphatic: no adenopathy Laboratory Results Last 24 Hours Test 02/23/17 08:39 02/23/17 08:50 02/23/17 08:53 02/23/17 19:47 Creatine Kinase MB Ratio 0.9 White Blood Count 3.41 K/uL Red Blood Count 3.63 M/uL Hemoglobin 12.3 g/dL Hematocrit 35.9 % Mean Corpuscular Volume 98.9 fL Mean Corpuscular Hemoglobin 33.9 pg Mean Corpuscular Hemoglobin Concent 34.3 g/dl Platelet Count 151 K/uL Mean Platelet Volume 10.1 fL Neutrophils (%) (Auto) 77.5 % Lymphocytes (%) (Auto) 15.5 % Monocytes (%) (Auto) 3.2 % Eosinophils (%) (Auto) 3.5 % Basophils (%) (Auto) 0.3 % Neutrophils # (Auto) 2.64 K/uL Lymphocytes # (Auto) 0.53 K/uL Monocytes # (Auto) 0.11 K/uL Eosinophils # (Auto) 0.12 K/uL Basophils # (Auto) 0.01 K/uL RDW Standard Deviation 65.7 fL RDW Coefficient of Variation 18.0 % Immature Granulocyte % (Auto) 0.0 % Immature Granulocyte # (Auto) 0.00 K/uL Sodium Level 135 mmol/L Potassium Level 3.9 mmol/L Chloride Level 101 mmol/L Carbon Dioxide Level 28 mmol/L Anion Gap 6.0 mmol/L Blood Urea Nitrogen 18 mg/dl Creatinine 0.96 mg/dl Est Creatinine Clear Calc Drug Dose 95.6 ml/min Estimated GFR () 99.9 Estimated GFR (Non- 86.2 BUN/Creatinine Ratio 18.5 Random Glucose 82 mg/dl Calcium Level 8.8 mg/dl Total Bilirubin 2.3 mg/dl Direct Bilirubin mg/dl Aspartate Amino Transf (AST/SGOT) 103 U/L Alanine Aminotransferase (ALT/SGPT) 104 U/L Alkaline Phosphatase 249 U/L Total Creatine Kinase 80 U/L Creatine Kinase MB 0.7 ng/ml Total Protein 7.5 gm/dl Albumin 3.3 gm/dl Lipase 176 U/L Chemistry Specimen Hemolysis Bedside Troponin I < 0.030 ng/ml Activated Partial Thromboplast Time 49.2 SECONDS Partial Thromboplastin Ratio 1.9 Test 02/24/17 05:43 White Blood Count 2.25 K/uL Red Blood Count 2.98 M/uL Hemoglobin 10.3 g/dL Hematocrit 29.5 % Mean Corpuscular Volume 99.0 fL Mean Corpuscular Hemoglobin 34.6 pg Mean Corpuscular Hemoglobin Concent 34.9 g/dl Platelet Count 94 K/uL Mean Platelet Volume 9.1 fL Neutrophils (%) (Auto) 68.5 % Lymphocytes (%) (Auto) 24.0 % Monocytes (%) (Auto) 4.4 % Eosinophils (%) (Auto) 2.7 % Basophils (%) (Auto) 0.4 % Neutrophils # (Auto) 1.54 K/uL Lymphocytes # (Auto) 0.54 K/uL Monocytes # (Auto) 0.10 K/uL Eosinophils # (Auto) 0.06 K/uL Basophils # (Auto) 0.01 K/uL RDW Standard Deviation 65.4 fL RDW Coefficient of Variation 17.9 % Immature Granulocyte % (Auto) 0.0 % Immature Granulocyte # (Auto) 0.00 K/uL Platelet Estimate DECREASED Anisocytosis PRESENT Prothrombin Time 10.3 SECONDS Prothromb Time International Ratio 1.0 Activated Partial Thromboplast Time 60.7 SECONDS Partial Thromboplastin Ratio 2.3 Sodium Level 139 mmol/L Potassium Level 4.3 mmol/L Chloride Level 109 mmol/L Carbon Dioxide Level 26 mmol/L Anion Gap 4.0 mmol/L Blood Urea Nitrogen 16 mg/dl Creatinine 0.84 mg/dl Est Creatinine Clear Calc Drug Dose 100.8 ml/min Estimated GFR () 111.1 Estimated GFR (Non- 95.8 BUN/Creatinine Ratio 18.6 Random Glucose 103 mg/dl Calcium Level 8.6 mg/dl Magnesium Level 2.4 mg/dl Total Bilirubin 1.1 mg/dl Direct Bilirubin 0.4 mg/dl Aspartate Amino Transf (AST/SGOT) 64 U/L Alanine Aminotransferase (ALT/SGPT) 80 U/L Alkaline Phosphatase 237 U/L Total Protein 6.1 gm/dl Albumin 2.7 gm/dl Assessment & Plan 1. Syncope probable vasovagal. 2. Chronic pulmonary embolism. 3. Metastatic colorectal cancer. 4. Simple laceration left eyebrow. In summary Drake is a pleasant 61-year-old gentleman well-known to the cancer care partnership currently under my care for metastatic colorectal cancer. He woke Friday morning and suffered a syncopal episode without witnessed loss of consciousness. Drake suffered a similar episode several months ago again attributable to a vasovagal event. CT scan of the head was negative for intracranial abnormalities. However, CTA of the chest and chest x-ray confirmed the presence of a small right upper lobe infiltrate and chronic pulmonary embolism. He has been placed on antibiotics and intravenous heparin. He last received intrahepatic FUDR in conjunction with FOLFIRI on February 20. I examined the patient at bedside today and engaged in discussion regarding therapeutics going forward. Drake fully understands the terminal nature of his disease however would like to go on a planned trip to [place] for 4 days starting 02/26. As long as he is without fever or other symptoms suggestive of worsening pneumonia, I would recommend converting him to oral antibiotics particularly a fluoroquinolone and continue anticoagulation Lovenox 1.5 mg/kg subcutaneous daily. Would have him contact the office upon his return to discuss conversion to Coumadin at that time. He will continue chemotherapy as scheduled. Outpatient follow-up has been arranged. If you have any questions or concerns regarding these recommendations feel free to contact me at any time. Thank you very much for assisting me in the care of this very pleasant gentleman.
[2017-02-24] MEDS ORDERED: LOVENOX TEACHING KIT ONE (09:30)
[2017-02-24] MEDS ORDERED: ENOXAPARIN 1.5 MG/KG SQ ONE (10:15)
[2017-02-24] MEDS ORDERED: lovenox SC (10:30)
[2017-02-24] MEDS ORDERED: ENOXAPARIN 150 MG/1ML SYR SQ ONE (10:30)
[2017-02-24] MEDS ORDERED: LEVO-18 PO (10:30)
--- NOTE | 2017-02-24 10:41 | Discharge Instructions ---
Discharge Instructions Date of Service Feb 24, 2017. Admission Reason for Admission: Pulmonary Embolism,Syncope Discharge Discharge Diagnosis / Problem: Pulmonary embolism, Syncope, R-sided pneumonia Discharge Goals Goal(s): Decrease discomfort Activity Recommendations Activity Limitations: resume your previous activity Lifting Limitations: none Exercise/Sports Limitations: as tolerated May Resume Sexual Activity: when tolerated Shower/Bathe: no limitations Driving or Machine Use: no limitations . Instructions / Follow-Up Instructions / Follow-Up You were admitted because of a fainting episode after chemotherapy. This was likely due to mild dehydration. You did have a CT scan that showed you have a clot in your lung. You also have a clot in your left leg. Going home, you will need to be on a blood thinner to treat this. You will be discharged on Lovenox injections for 2 weeks. Our nurse will show you how to give yourself the first dose. We will prescribe you with Coumadin which you will start taking after come from [place]. Please call Dr. Nam when you return from [place]. Do not start until he has given you instructions on how to take it Your CT scan also showed that you have a pneumonia. You were treated with antibiotics and have been given a prescription for this going home. Start taking the Levaquin tomorrow If your symptoms fail to improve, acutely worsen, please seek medical attention immediately by either calling your primary care provider or going to your nearest emergency department. Otherwise, please see your primary care provider in 3-5 days to ensure that your symptoms continue to improve. It was a pleasure to be involved in your care and we wish you all the best. Current Hospital Diet Patient's current hospital diet: Regular Diet Discharge Diet Recommended Diet: Regular Diet Procedures Procedures Performed: CHEST CTA for PULMONARY ARTERIES CT DOSE: 327.30 mGy.cm HISTORY: Syncope. Lung cancer. TECHNIQUE: Multiaxial CT images of the chest were performed following the intravenous administration of contrast to evaluate the pulmonary arteries. Maximal intensity projection images were also obtained. A dose lowering technique was utilized adhering to the principles of ALARA. COMPARISON STUDY: Outside hospital chest CT 01/24/2017. CT 12/31/2016. FINDINGS: No evidence for an aortic dissection. No pleural or pericardial effusions. No change in the filling defects seen within the proximal segmental branches of the right lower lobe pulmonary arteries. This is consistent with subacute to chronic pulmonary. No new pulmonary emboli identified. Multiple hepatic masses are again noted and not significantly changed. The spleen is enlarged. This is also similar in size. Visualized adrenal glands are unremarkable. Cholecystectomy. Left subclavian Port-A-Cath. Mild right hilar lymphadenopathy with the largest lymph node measuring 12 mm. This previous measured 1 cm. Healing right anterior rib fractures. No suspicious lytic or blastic osseous lesions. The Port-A-Cath terminates in the proximal SVC. No pneumothorax. The left lung is essentially clear. Stable 8 mm nodule within the base of the right lower lobe. Dense consolidation within the anterior segment of the right upper lobe with scattered surrounding tree-in-bud nodular opacities. Stable 4 mm nodule seen within the superior segment of the right lower lobe on image [id number] within the right upper lobe posteriorly on image 167. Narrowing versus partial opacification within the proximal anterior segmental bronchi of the right upper lobe. IMPRESSION: 1. No change in the subacute to chronic pulmonary emboli seen within the segmental branches of the right lower lobe. No new abnormal identified. 2. Interval development of dense consolidation within the anterior segment of the right upper lobe with surrounding tree-in-bud nodular airspace opacities. This favors a pneumonia. Pulmonary infarct is considered less likely given the patent pulmonary arteries at this location. Underlying malignancy/metastatic disease cannot be excluded. One month chest CT follow up is recommended to ensure resolution following a course of antibiotic therapy. 3. Mildly enlarged right hilar lymph nodes which have progressed. This may be reactive or due to metastatic disease. 4. Stable subcentimeter pulmonary nodules within the right lung. 5. Hepatic masses are not significant changed. Electronically signed by: Amado Garces M.D. 02/23/2017 11:26 AM BILATERAL LOWER EXTREMITY VENOUS DOPPLER HISTORY: Pulmonary emboli. Assess for DVT. COMPARISON STUDY: None. FINDINGS: There is normal compressibility, flow, and augmentation within the right lower extremity deep venous system. Occlusive DVT seen within the proximal left superficial femoral vein and distal left popliteal vein. Nonocclusive DVT seen throughout the remaining portions of the left superficial femoral vein and popliteal vein. Occlusive DVT seen within one of 2 left posterior tibial veins. IMPRESSION: 1. No DVT within the right lower externally. 2. DVT within the left lower extremity as described above. Electronically signed by: Amado Garces M.D. 02/23/2017 4:16 PM Pending Studies Studies pending at discharge: no Medical Emergencies . Who to Call and When: Medical Emergencies: If at any time you feel your situation is an emergency, please call 911 immediately. . Non-Emergent Contact Non-Emergency issues call your: Primary Care Provider, Oncologist Call Non-Emergent contact if: you have a fever, your pain is not controlled, your pain is worsening, your pain is concerning you . . "Provider Documentation" section prepared by Dean Agudelo. . VTE Core Measure Inpt VTE Proph given/why not?: Other Anticoagulation (IV heparin, standard dose with bolus per protocol)
[2017-02-24] MEDS ORDERED: WARF2TAB PO (10:42)
[2017-02-24] MEDS ORDERED: WARF5TAB90 PO (10:42)
[2017-02-24 10:59] VITALS: BP 130/82; PULSE 65; TEMP 36.9; O2SAT 99
[2017-02-24] MEDS ORDERED: LEVOFLOXACIN 750 MG TAB PO ONE (11:00)
[2017-02-24] MEDS: NSS + 20MEQ KCL 1000ML 1,000 ML IV SCH (11:20)
--- NOTE | 2017-02-24 13:22 | Discharge Summary ---
Discharge Summary Date of Service Feb 24, 2017. (Dean Agudelo MD) Discharge Summary Admission Date: Feb 23, 2017 at 12:56 Discharge Date: Feb 24, 2017 Discharge Disposition: Home Principal Diagnosis: Pumonary embolism, Left lower extremity DVT, RUL pneumonia Problems/Secondary Diagnoses: syncope post-chemotherapy Immunizations: History of Tetanus Vaccine?: Yes History of Pneumococcal: No History of Hepatitis B Vaccine: Unknown Procedures: BILATERAL LOWER EXTREMITY VENOUS DOPPLER HISTORY: Pulmonary emboli. Assess for DVT. COMPARISON STUDY: None. FINDINGS: There is normal compressibility, flow, and augmentation within the right lower extremity deep venous system. Occlusive DVT seen within the proximal left superficial femoral vein and distal left popliteal vein. Nonocclusive DVT seen throughout the remaining portions of the left superficial femoral vein and popliteal vein. Occlusive DVT seen within one of 2 left posterior tibial veins. IMPRESSION: 1. No DVT within the right lower externally. 2. DVT within the left lower extremity as described above. Electronically signed by: Amado Garces M.D. 02/23/2017 4:16 PM Dictated Date/Time: 02/23/2017 4:14 PM CHEST CTA for PULMONARY ARTERIES CT DOSE: 327.30 mGy.cm HISTORY: Syncope. Lung cancer. TECHNIQUE: Multiaxial CT images of the chest were performed following the intravenous administration of contrast to evaluate the pulmonary arteries. Maximal intensity projection images were also obtained. A dose lowering technique was utilized adhering to the principles of ALARA. COMPARISON STUDY: Outside hospital chest CT 01/24/2017. CT 12/31/2016. FINDINGS: No evidence for an aortic dissection. No pleural or pericardial effusions. No change in the filling defects seen within the proximal segmental branches of the right lower lobe pulmonary arteries. This is consistent with subacute to chronic pulmonary. No new pulmonary emboli identified. Multiple hepatic masses are again noted and not significantly changed. The spleen is enlarged. This is also similar in size. Visualized adrenal glands are unremarkable. Cholecystectomy. Left subclavian Port-A-Cath. Mild right hilar lymphadenopathy with the largest lymph node measuring 12 mm. This previous measured 1 cm. Healing right anterior rib fractures. No suspicious lytic or blastic osseous lesions. The Port-A-Cath terminates in the proximal SVC. No pneumothorax. The left lung is essentially clear. Stable 8 mm nodule within the base of the right lower lobe. Dense consolidation within the anterior segment of the right upper lobe with scattered surrounding tree-in-bud nodular opacities. Stable 4 mm nodule seen within the superior segment of the right lower lobe on image 186 within the right upper lobe posteriorly on image 167. Narrowing versus partial opacification within the proximal anterior segmental bronchi of the right upper lobe. IMPRESSION: 1. No change in the subacute to chronic pulmonary emboli seen within the segmental branches of the right lower lobe. No new abnormal identified. 2. Interval development of dense consolidation within the anterior segment of the right upper lobe with surrounding tree-in-bud nodular airspace opacities. This favors a pneumonia. Pulmonary infarct is considered less likely given the patent pulmonary arteries at this location. Underlying malignancy/metastatic disease cannot be excluded. One month chest CT follow up is recommended to ensure resolution following a course of antibiotic therapy. 3. Mildly enlarged right hilar lymph nodes which have progressed. This may be reactive or due to metastatic disease. 4. Stable subcentimeter pulmonary nodules within the right lung. 5. Hepatic masses are not significant changed. Electronically signed by: Amado Garces M.D. 02/23/2017 11:26 AM Dictated Date/Time: 02/23/2017 11:13 AM (Dean Agudelo MD) Medication Reconciliation New Medications: Levofloxacin (Levaquin) 750 Mg Tab 1 TAB PO DAILY for 9 Days, #9 TAB Warfarin Sodium (Coumadin) 2 Mg Tab 1 TAB PO UD for 30 Days, #30 TAB Warfarin Sodium (Coumadin) 5 Mg Tab 1 TAB PO UD for 30 Days, #30 TAB [lovenox] () 150 mg/1 ml syringe INJ 135 ML SC DAILY for 14 Days, #14 UNITS Continued Medications: Mometasone Furoate-Formoterol (Dulera 200/5 Mcg) 1 Aer Aer 1 AER INH PRN for PRN, INHALER USES ONLY PRN-INSTRUCTED TO USE IF NEEDED Multivitamin (Multivitamin) Tab 1 TAB PO QAM, TAB Ondansetron Hcl (Zofran) 8 Mg Tab 8 MG PO Q8 PRN for Nausea, TAB Oxycodone/Acetaminophen 10MG/325MG (Percocet 10MG/325MG) Tab 1 TAB PO Q4H PRN for Pain, #30 TAB Venlafaxine Hcl (Effexor Extended Rel) 75 Mg Capcr 75 MG PO DAILY, #30 Discharge Exam A 10 point review of systems was negative unless stated in the hospital course. Physical Exam: General Appearance: WD/WN, no apparent distress (sitting at edge of bed) Eyes: normal inspection, PERRL, EOMI ENT: normal ENT inspection, hearing grossly normal, pharynx normal Neck: supple, no adenopathy, no carotid bruits Respiratory/Chest: lungs clear, normal breath sounds, no respiratory distress, no accessory muscle use Cardiovascular: regular rate, rhythm, no murmur, normal peripheral pulses Abdomen / GI: normal bowel sounds, non tender, soft, + pertinent finding ( multiple abdominal hernias and well-healed surgical scars) Extremities: no calf tenderness, + pertinent finding (multiple superficial varicose veins bilaterally) Neurologic/Psychiatric: alert, normal mood/affect, oriented x 3 Skin: normal color, warm/dry, no rash Lymphatic: no adenopathy (Dean Agudelo MD) Hospital Course Mr. San is a 61yo male with a history of metastatic colon cancer s/p colectomy who was admitted on 02/23/17 for evaluation of syncope post- chemotherapy. Workup revealed both right-sided pulmonary embolus and RUL pneumonia as well as left lower extremity DVT. His hospital course is as follows: Right-sided Pulmonary Embolism - CT report provided above - Started on heparin infusion; transitioned to Lovenox s.c. 1.5 mg/kg; he will be going on vacation so will do this daily x 2 weeks - Seen by Dr. Nam (Heme/Onc); recommends starting Coumadin upon return; patient was advised to call his office for instructions - Duration of therapy per Dr. Nam; anticipate minimum 6 months of treatment Left Lower Extremity DVT - See U/S report above - Lovenox with transition to Coumadin as above Syncope - History notes that this is not a new occurrence for patient; patient reports generally feeling unwell after chemotherapy sessions - Likely 2/2 vasovagal +/- mild subclinical dehydration - Encouraged patient to push PO fluid intake Right Upper Lobe PNA - IV Vanc and Zosyn on admission - Transitioned to PO Levaquin x 5 days Metastatic Colorectal Cancer - Seen by Dr. Nam; no additional recommendations at this time; patient instructed to follow-up in the office Patient discharged in stable condition after 24 hours. Patient to see PCP within 1 week of discharge and will F/U with hematology/ oncology in the office after return from vacation. Total Time Spent: Less than 30 minutes This includes examination of the patient, discharge planning, medication reconciliation, and communication with other providers. (Dean Agudelo MD) Resident Physician Supervision Note: I interviewed and examined the patient. Discussed with Dr. Agudelo and agree with findings and plan as documented in the note. Any exceptions or clarifications are listed here: None Documented By: Gurdeep Dockery feeling better really wants to go home no new complaints expressed understanding about both pneumonia and PE treatment. vitals noted nad breathing unlabored no pallor or icterus syncope - likely multifactorial, resolved pneumonia - improving. finish course of abx PE - lovenox 1.5mg /kg daily as rec'd by heme/onc - then likely will transition to coumadin (Gurdeep Dockery, D.O.) Discharge Instructions Please refer to the electronic Patient Visit Report (Discharge Instructions) for additional information. (Dean Agudelo MD) Additional Copies To Jonathan Nam D.O.; Trevor Lawler Jr,D.O.
[2017-02-25] MEDS ORDERED: VANCOMYCIN TROUGH SCH (05:30)
[2017-04-01] MEDS ORDERED: WARF5TAB90 PO (16:13)
[2017-04-01] MEDS ORDERED: WARF-237 PO (16:13)
[2017-04-08] MEDS ORDERED: LVNIS150 SC (15:50)
== END 2017-02-24 13:16 | disposition home or self-care (01) | DRG 175 ==
LOC: C.EDB 08:21 → C.4E 12:56 → ENRESERV 13:11 → C.4E 13:58 → UNDOADMIN 13:58
PROVIDERS: ADMIT Hospitalist; ATTEND Hospitalist
PROC: 0HQ1XZZ Repair Face Skin, External Approach (ICD-10-PCS; principal; 2017-02-23)
DX: I26.99 Other pulmonary embolism without acute cor pulmonale (principal); J18.9 Pneumonia, unspecified organism; I82.442 Acute embolism and thrombosis of left tibial vein; C18.9 Malignant neoplasm of colon, unspecified; C78.7 Secondary malignant neoplasm of liver and intrahepatic bile duct; C78.00 Secondary malignant neoplasm of unspecified lung; R55 Syncope and collapse; J45.909 Unspecified asthma, uncomplicated; F32.9 Major depressive disorder, single episode, unspecified; Z91.048 Other nonmedicinal substance allergy status; Z79.899 Other long term (current) drug therapy; S01.112A Laceration without foreign body of left eyelid and periocular area, initial encounter; W19.XXXA Unspecified fall, initial encounter; Y92.000 Kitchen of unspecified non-institutional (private) residence as the place of occurrence of the external cause

== ENCOUNTER → 2017-04-07 | Outpatient (CLI) | payer OTHER ==
[~2017-04-07] MED LIST changes: +LVNIS150 SC; -ONDA8TAB6 PO; -OXYC-106 PO; +WARF-237 PO; +WARF5TAB90 PO
--- NOTE | 2017-04-07 09:11 | DIAGNOSTIC IMAGING REPORT ---
PET/CT SKULL-THIGH CLINICAL HISTORY: COLORECTAL CANCER COMPARISON STUDY: CT scan the chest dated 02/23/2017, abdominal CT scan dated 01/24/2017. FINDINGS: The patient was injected with 13.8 mCi of F 18 labeled FDG. Following the standard induction phase, PET/CT scanning was performed from the skull base to the upper thigh region. Activity within the neck is felt to be physiologic. Within the thorax, there is no pathologic poli activity. There are few scattered subcentimeter pulmonary nodules which appear stable. These are not FDG avid. Within the abdomen, there are multifocal intensely FDG avid hepatic masses. Within the left lobe, there are 2 tangential masses which measure 7.7 cm in aggregate. These demonstrate an FDG maximum of 9.1. Within the right lobe inferiorly, there is a lobulated 6.6 cm mass which is FDG avid with SUV maximum of 10.5. There is also a mass within the right lobe of the liver beneath the dome of the diaphragm which essentially demonstrates no FDG activity. This likely represents a necrotic or treated metastatic deposit. There are additional smaller FDG avid hepatic lesions. Several lesions demonstrate capsular retraction. There is a gastric stimulator present. There is physiologic urinary tract activity. There is a large fat-containing ventral hernia. There is a nonspecific intense focus of increased activity within the sigmoid colon. This is an FDG maximum of 5.6. There is a second focus of moderately intense colonic activity in the region of the cecum with FDG maximum of 5.4. There are no FDG avid abdominal or pelvic lymph nodes. Subcutaneous soft tissue nodules in the anterior abdominal wall likely relate to injection sites. There are no pathologically FDG avid bone lesions. IMPRESSION: 1. Multiple intensely FDG avid hepatic masses viewed as highly suspicious for metastatic disease 2. No evidence of pathologic FDG activity within neck or chest 3. Nonspecific foci of increased FDG activity within the cecum and sigmoid colon. It is difficult to determine whether these reflect pathologic lytic lesions or physiologic activity. Correlation with endoscopic results is advocated Electronically signed by: Chaitanya Hylton M.D. 04/07/2017 9:10 AM Dictated Date/Time: 04/07/2017 8:57 AM
== END | disposition home or self-care (01) ==
LOC: C.PET 06:27
PROVIDERS: ATTEND Physician Assistant Surgical
DX: C18.9 Malignant neoplasm of colon, unspecified (principal); C79.9 Secondary malignant neoplasm of unspecified site; R16.0 Hepatomegaly, not elsewhere classified; K63.89 Other specified diseases of intestine

== ENCOUNTER → 2017-07-05 | Outpatient (CLI) | payer OTHER ==
[~2017-07-05] MED LIST changes: -WARF-237 PO; -WARF5TAB90 PO
[2017-07-05 09:58] LABS: INR 2.1 (0.9-1.1); PROTHROMBIN TIME (PATIENT) 21.7 SECONDS (9.0-12.0)
== END | disposition home or self-care (01) ==
LOC: C.LAB 09:27
PROVIDERS: ATTEND Pathology Blood Banking & Transfusion Medicine
DX: Z51.81 Encounter for therapeutic drug level monitoring (principal); Z79.01 Long term (current) use of anticoagulants